=== PATIENT | female | born 1980 | race Caucasian/White ===

== ENCOUNTER 2022-05-12 08:11 | Emergency (ER) | payer OTHER, SELFPAY ==
[2022-05-12 08:23] VITALS: BP 151/94; PULSE 84; RESP 16; TEMP 36.1; O2SAT 96; BMI 43.3
--- NOTE | 2022-05-12 09:06 | CRLHL7_ITS ---
For Patients: As a result of the Century Cures Act, medical imaging exams and procedure reports are released immediately into your electronic medical record. You may view this report before your referring provider. If you have questions, please contact your health care provider. INDICATION: Fall. TECHNIQUE: CT Head without contrast. COMPARISON: None. FINDINGS: CSF spaces: Within normal limits for age. Brain parenchyma: The barber-white differentiation is normal. No sign of mass, hemorrhage, or midline shift. Skull base and calvarium: The visualized paranasal sinuses and mastoid air cells are clear. The visualized orbits are grossly unremarkable. No skull fractures. . IMPRESSION: Unremarkable noncontrast head CT. Please note that all CT scans at this facility use dose modulation, iterative reconstruction, and/or weight-based dosing when appropriate to reduce radiation dose to as low as reasonably achievable. Dictated by Konrad Dorman MD @ 05/12/2022 9:47:25 AM (Electronically Signed)
--- NOTE | 2022-05-12 09:23 | ED.GENADULT ---
HPI - General Adult General Date Seen: 05/12/22 Chief complaint: Shortness of Breath/Dyspnea Stated complaint: Short of breath, high bp Time Seen by Provider: 05/12/22 08:59 Source: patient History of Present Illness HPI narrative: Patient is a 42-year-old woman who tells me she has not felt well for the past week primarily with headache and dizziness. She is also worried because her blood pressure has been elevated, she says when she has checked it at her friend's house ?both numbers have been over 100?. She says that she is not aware of having high blood pressure in the past. She became concerned that high blood pressure might be causing problems for her. To me, she specifically denies any chest pain or shortness of breath although I note that she checked in with a complaint of shortness of breath. She has not had any sore throat, congestion or cough. She does say that she just feels achy all over. She says the headache is bitemporal, and associated with nausea. It gets better with ibuprofen. Otherwise, it is constant for the past week. She denies visual complaints or other neurologic changes. She says typically she does not get headaches. When specifically asked, she does say she has had some urinary frequency and possibly some urgency. No dysuria. She does smoke daily, denies any alcohol use and denies any current drug use. Chart lists a history of methamphetamine use in 2018. She says she was supposed to see her primary care doctor recently but missed that appointment, she does say she has an appointment rescheduled in the near future. 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 of methamphetamine use (05/2018) History of vitamin D deficiency Surgical History History of appendectomy (1992) History of section (08/2019) History of colposcopy with cervical biopsy (1993) History of elective History of excision of dermoid cyst (2004) History of third molar tooth extraction (2000) Family History Mother Colon cancer, Onset Age: 50 Father Substance abuse Brother Substance abuse Social History Narrative: Recovering alcoholic Tobacco use 1 pack/day 28 years Significant other lives with mom also, 1 son Does not have a exercise regimen Smoking Status: Never smoker Do you use any of these nicotine containing products: None Second hand tobacco smoke exposure: No How often do you have a drink containing alcohol: never How often do you have six or more drinks on one occasion: Never AUDIT-C Alcohol total score: 0 Non-prescribed substance use: denies use service: No Exam Narrative: Exam Narrative: Vital signs as noted above. In general, an alert, well-appearing patient. Looks comfortable. Head: Normocephalic, atraumatic. Eyes: Pupils are equal reactive. Extraocular movements are full. Conjunctivae are normal. ENT: Mucous membranes are moist. Throat is normal. Notes some bitemporal tenderness to palpation. Neck: Supple without lymphadenopathy. Heart: Regular rate and rhythm. No murmur or rub. Lungs: Clear bilaterally. No increased work of breathing, crackles or wheezes. Abdomen: Soft and nontender. No organomegaly. Extremities: Well perfused. No edema. No calf tenderness. Pulses intact. Neurologic: Patient is alert and oriented to person and place. Speech is fluent. Face is symmetric. Moves all extremities equally. Affect: Normal. Skin: Warm and dry. Well perfused. Const: Vital Signs, click to edit/add: Vital Signs - 24 hr 05/12/22 08:23 Temperature 96.9 F L Pulse Rate [Pulse Oximeter] 84 Respiratory Rate 16 Blood Pressure [Ri ght Upper Arm] 151/94 H Pulse Oximetry 96 Oxygen Delivery Me thod Room Air Documenting provider has reviewed patient's vital signs: yes Course Course Hospital Course: Plan at this point will be to place an IV, she requests treatment for her headache so will go ahead and give her Toradol, Benadryl and Zofran. CT scan of the head given elevated blood pressures which she says are, blood pressure here is not markedly elevated but I am not sure which she has been running at home. I am going to get a CRP and sed rate given that her headache is temporal. Will check a COVID, routine blood work. Given that she is currently not complaining of dyspnea, is not tachypneic or hypoxic, has normal lung sounds, I do not think further evaluation for shortness of breath is necessary at this time. CT scan of the head by my review was negative for any acute findings. Final radiology report was likewise negative. She feels much better after treatment for her headache. Labs are all normal, COVID is negative. CRP is 1.6, sed rate is normal. I do not think this represents temporal arteritis. We discussed that her blood pressure is mildly elevated, something certainly to keep an eye on and when she sees her primary doctor that can be discussed. I am not worried however that her blood pressure is causing these symptoms. Certainly possible that she has another viral process going on, and may feel improved over the next few days. In the meantime, ibuprofen or Tylenol is appropriate for treatment of her headache if needed. Return for new symptoms such as high fever, vomiting, severe pain. Vital Signs Vital signs: Initial Vital Signs Temperature 96.9 F L 05/12/22 08:23 Temperature Source Temporal Artery Scan 05/12/22 08:23 Pulse Rate 84 05/12/22 08:23 Pulse Rhythm 05/12/22 08:23 Respiratory Rate 16 05/12/22 08:23 Blood Pressure 151/94 H 05/12/22 08:23 Blood Pressure Mean 113 05/12/22 08:23 Blood Pressure Position Sitting 05/12/22 08:23 Pulse Oximetry 96 05/12/22 08:23 Oxygen Delivery Method 05/12/22 08:23 Vital Signs Temperature 96.9 F L 05/12/22 08:23 Pulse Rate 84 05/12/22 08:23 Respiratory Rate 16 05/12/22 08:23 Blood Pressure 151/94 H 05/12/22 08:23 Pulse Oximetry 96 05/12/22 08:23 Oxygen Delivery Method 05/12/22 08:23 Temperature 96.9 F L 05/12/22 08:23 Pulse Rate 84 05/12/22 08:23 Respiratory Rate 16 05/12/22 08:23 Blood Pressure 151/94 H 05/12/22 08:23 Pulse Oximetry 96 05/12/22 08:23 Oxygen Delivery Method 05/12/22 08:23 Medical Decision Making Lab Data Labs: Lab Results 05/12/22 05/12/22 05/12/22 Range/Units 09:44 09:44 09:44 WBC 10.05 (4.50-11.00) K/uL RBC 5.17 (4.00-5.20) m/uL Hgb 15.1 (12.0-16.0) gm/dL Hct 44.1 (33.0-51.0) % MCV 85 (80-100) fL MCH 29 (26-34) pg MCHC 34 (32-36) gm/dL RDW Coeff of Jillian 13.4 (11.5-15.5) % Plt Count 320 (140-440) K/uL Neut % (Auto) 70.6 (42.0-72.0) % Lymph % (Auto) 19.0 L (20-44) % Davison % (Auto) 5.3 (0.0-11.0) % Eos % (Auto) 3.9 (0.0-7.0) % Baso % (Auto) 0.6 (0.0-3.0) % Neut # (Auto) 7.10 H (1.7-7.0) K/uL Lymph # (Auto) 1.90 (0.90-2.90) K/uL Davison # (Auto) 0.50 (0.00-0.90) K/UL Eos # (Auto) 0.39 (0.00-0.50) K/uL Baso # (Auto) 0.06 (0.00-0.30) K/uL Abs Immat Gran (auto) 0.06 (0.00-0.30) K/uL ESR 16 (2-20) mm/hr Sodium 136 (135-149) mmol/L Potassium 4.2 (3.6-5.1) mmol/L Chloride 102 (96-114) mmol/L Carbon Dioxide 28 (20-32) mmol/L BUN 15 (5-24) mg/dL Creatinine 0.6 (0.5-1.5) mg/dL Estimated Creat Clear 107.67 Estimated GFR 113 ml/min Glucose 162 H (60-115) mg/dL Calcium 9.3 (8.4-10.6) mg/dL Total Bilirubin 0.5 (0.1-1.5) mg/dL Direct Bilirubin 0.2 (0.0-0.5) mg/dL AST 29 (12-35) U/L ALT 33 (4-35) U/L Alkaline Phosphatase 91 (40-150) U/L C-Reactive Protein 1.6 H (0.5-1.0) mg/dL Total Protein 7.2 (6.0-8.3) g/dL Albumin 4.0 (3.3-5.0) g/dL TSH (0.270-4.200) uIU/mL SARS-CoV-2 (PCR) (Negative) 05/12/22 05/12/22 Range/Units 09:44 10:05 WBC (4.50-11.00) K/uL RBC (4.00-5.20) m/uL Hgb (12.0-16.0) gm/dL Hct (33.0-51.0) % MCV (80-100) fL MCH (26-34) pg MCHC (32-36) gm/dL RDW Coeff of Jillian (11.5-15.5) % Plt Count (140-440) K/uL Neut % (Auto) (42.0-72.0) % Lymph % (Auto) (20-44) % Davison % (Auto) (0.0-11.0) % Eos % (Auto) (0.0-7.0) % Baso % (Auto) (0.0-3.0) % Neut # (Auto) (1.7-7.0) K/uL Lymph # (Auto) (0.90-2.90) K/uL Davison # (Auto) (0.00-0.90) K/UL Eos # (Auto) (0.00-0.50) K/uL Baso # (Auto) (0.00-0.30) K/uL Abs Immat Gran (auto) (0.00-0.30) K/uL ESR (2-20) mm/hr Sodium (135-149) mmol/L Potassium (3.6-5.1) mmol/L Chloride (96-114) mmol/L Carbon Dioxide (20-32) mmol/L BUN (5-24) mg/dL Creatinine (0.5-1.5) mg/dL Estimated Creat Clear Estimated GFR ml/min Glucose (60-115) mg/dL Calcium (8.4-10.6) mg/dL Total Bilirubin (0.1-1.5) mg/dL Direct Bilirubin (0.0-0.5) mg/dL AST (12-35) U/L ALT (4-35) U/L Alkaline Phosphatase (40-150) U/L C-Reactive Protein (0.5-1.0) mg/dL Total Protein (6.0-8.3) g/dL Albumin (3.3-5.0) g/dL TSH 1.990 (0.270-4.200) uIU/mL SARS-CoV-2 (PCR) Negative SARS-CoV-2 (Negative) Discharge Plan Discharge Clinical Impression: Elevated blood pressure reading, Headache Patient Disposition: Home, Self-Care Condition: Improved Instructions: General Headache (ED) Additional Instructions: Ibuprofen or Tylenol as needed. Follow up with her primary doctor as planned. Return at any time for acute worsening. Prescriptions: No Action No Known Home Medications Follow Up/Referrals: Cecilia Escudero MD [Primary Care Provider] - Stand Alone Forms: [employer] Info Instructions
[2022-05-12] MEDS: diphenhydrAMINE 50 MG/ML inj 25 MG IVP (09:58)
[2022-05-12] MEDS: 0.9 % SODIUM CHLORIDE 1000 ml 1,000 ML IV (10:00)
[2022-05-12] MEDS: KETOROLAC 15 MG/ML inj IVP (10:00)
[2022-05-12] MEDS: ONDANSETRON 2 MG/ML inj 4 MG IVP (10:00)
[2022-05-12 10:04] LABS: Basophils Absolute Auto 0.06 K/uL (0.00-0.30); Basophils Percent Auto 0.6 % (0.0-3.0); Eosinophils Absolute Auto 0.39 K/uL (0.00-0.50); Eosinophils Percent Auto 3.9 % (0.0-7.0); Hematocrit 44.1 % (33.0-51.0); Hemoglobin* 15.1 gm/dL (12.0-16.0); Immature Granulocytes Abs Auto 0.06 K/uL (0.00-0.30); Mean Corpuscular HGB Conc 34 gm/dL (32-36); Mean Corpuscular Hemoglobin 29 pg (26-34); Mean Corpuscular Volume 85 fL (80-100); Monocytes Percent Auto 5.3 % (0.0-11.0); Neutrophils Percent Auto 70.6 % (42.0-72.0); Platelet Count* 320 K/uL (140-440); RDW Coefficient of Variation % 13.4 % (11.5-15.5); Red Blood Count 5.17 m/uL (4.00-5.20); White Blood Count* 10.05 K/uL (4.50-11.00)
[2022-05-12 10:07] LABS: Slide Review Reflex No
[2022-05-12 10:17] LABS: Chloride* 102 mmol/L (96-114); Sodium* 136 mmol/L (135-149)
[2022-05-12 10:19] LABS: Potassium* 4.2 mmol/L (3.6-5.1)
[2022-05-12 10:21] LABS: Alanine Aminotransferase* 33 U/L (4-35); Alkaline Phosphatase* 91 U/L (40-150); Aspartate Amino Transferase* 29 U/L (12-35); Bilirubin Direct* 0.2 mg/dL (0.0-0.5); Bilirubin Total* 0.5 mg/dL (0.1-1.5); Blood Urea Nitrogen* 15 mg/dL (5-24); Carbon Dioxide* 28 mmol/L (20-32); Creatinine* 0.6 mg/dL (0.5-1.5); Est. Creatinine Clearance* 107.67; Estimated Glomerular Filt Rate 113 ml/min; Glucose* 162 mg/dL (60-115); Total Protein* 7.2 g/dL (6.0-8.3)
[2022-05-12 10:22] LABS: Calcium* 9.3 mg/dL (8.4-10.6)
[2022-05-12 10:24] LABS: C Reactive Protein* 1.6 mg/dL (0.5-1.0)
[2022-05-12 10:54] LABS: SARS PCR* Negative SARS-CoV-2 (Negative)
[2022-05-12 10:57] LABS: Erythrocyte SedimentationRate* 16 mm/hr (2-20)
== END 2022-05-12 11:30 | disposition home or self-care (01) ==
PROVIDERS: Emergency Provider Emergency Medicine; PCP Family Medicine
DX: R51.9 Headache, unspecified (principal); R03.0 Elevated blood-pressure reading, without diagnosis of hypertension
CPT/HCPCS: 36415; 70450; 80048; 80076; 80306; 81001; 84443; 85025; 85651; 86140; 87635; 96361; 96374; 96375; 99284; J1200; J1885; J2405; J7030

== ENCOUNTER 2022-12-07 14:31 | Outpatient (CLI) | payer MEDICAID, SELFPAY | END 2022-12-07 14:32 | disposition home or self-care (01) | LOC: NFLDREF 12-10 15:44 | PROVIDERS: PCP Family Medicine; Visit Provider Family Medicine | DX: Z00.00 Encounter for general adult medical examination without abnormal findings (principal); E78.1 Pure hyperglyceridemia; E55.9 Vitamin D deficiency, unspecified; I10 Essential (primary) hypertension; E66.01 Morbid (severe) obesity due to excess calories; F41.9 Anxiety disorder, unspecified; F32.A Depression, unspecified | CPT/HCPCS: 80053; 80061; 82306 ==

== ENCOUNTER 2023-03-06 14:39 | Outpatient (CLI) | payer MEDICAID, SELFPAY | END 2023-03-06 14:40 | disposition home or self-care (01) | LOC: NFLDREF 03-07 07:21 | PROVIDERS: PCP Family Medicine; Referring Provider Family Medicine; Visit Provider Family Medicine | DX: I10 Essential (primary) hypertension (principal); E55.9 Vitamin D deficiency, unspecified | CPT/HCPCS: 80048; 82306 ==

== ENCOUNTER 2023-04-16 13:36 | Outpatient (CLI) | payer MEDICAID, SELFPAY ==
--- NOTE | 2023-04-16 14:00 | CRLHL7_ITS ---
For Patients: As a result of the Cures Act, medical imaging exams and procedure reports are released immediately into your electronic medical record. You may view this report before your referring provider. If you have questions, please contact your health care provider. BILATERAL DIGITAL SCREENING MAMMOGRAM WITH COMPUTER-AIDED DETECTION CLINICAL HISTORY: Routine screening exam. COMPARISON: None. TECHNIQUE: Digital mammogram in CC and MLO projections including computer-aided detection (CAD). BREAST COMPOSITION: The breasts are almost entirely fatty FINDINGS: RIGHT Breast: Focal asymmetric density upper outer quadrant 13 cm from the nipple. LEFT Breast: No suspicious findings. IMPRESSION: RIGHT breast asymmetry/mass. RECOMMENDATIONS: Additional mammographic views of the RIGHT breast including 3D spot-compression CC/MLO. RIGHT breast ultrasound may also be required. [facility] will contact the patient for follow-up. BI-RADS Category 0: Incomplete: Need Additional Imaging Evaluation and/or Prior Mammograms for Comparison A lay language report of this examination will be provided to the patient. Dictated by Garrett Evans MD @ 04/17/2023 1:19:56 PM/elan PRAVEEN/Dictated by: Garrett Evans MD @ 04/17/2023 1:19:00 PM (Electronically Signed)
== END 2023-04-16 13:37 | disposition home or self-care (01) ==
LOC: MAMMO 13:38
PROVIDERS: PCP Family Medicine; Visit Provider Family Medicine
DX: Z12.31 Encounter for screening mammogram for malignant neoplasm of breast (principal); N63.10 Unspecified lump in the right breast, unspecified quadrant
CPT/HCPCS: 77067

== ENCOUNTER 2023-04-22 10:36 | Outpatient (CLI) | payer MEDICAID, SELFPAY ==
--- NOTE | 2023-04-22 10:45 | CRLHL7_ITS ---
For Patients: As a result of the Cures Act, medical imaging exams and procedure reports are released immediately into your electronic medical record. You may view this report before your referring provider. If you have questions, please contact your health care provider. DIAGNOSTIC RIGHT BREAST MAMMOGRAM WITH COMPUTER-AIDED DETECTION AND TOMOSYNTHESIS RIGHT BREAST ULTRASOUND CLINICAL HISTORY: RIGHT breast mass/asymmetry. COMPARISON: 04/16/2023. TECHNIQUE: Digital RIGHT mammogram in 2 projections. Computer-aided detection and tomosynthesis were used. Real-time ultrasound imaging of RIGHT breast with imaging documentation. BREAST COMPOSITION: The breasts are almost entirely fatty FINDINGS: 3D spot compression CC/MLO RIGHT breast mammogram images submitted. Decreased conspicuity of previously noted asymmetric density. No architectural distortion or suspicious calcifications. Targeted RIGHT breast ultrasound performed in the lateral RIGHT breast at 9 o`clock 12 cm from the nipple. Normal breast tissue is present. No fibrocystic change or solid mass. IMPRESSION: No evidence of malignancy. RECOMMENDATIONS: Annual BILATERAL screening mammography. BI-RADS Category 2: Benign Results and recommendations discussed with the patient. A lay language report of this examination will be provided to the patient. Dictated by Garrett Evans MD @ 04/22/2023 12:00:47 PM/elan PRAVEEN/Dictated by: Garrett Evans MD @ 04/22/2023 12:00:00 PM (Electronically Signed)
--- NOTE | 2023-04-22 11:15 | CRLHL7_ITS ---
For Patients: As a result of the Century Cures Act, medical imaging exams and procedure reports are released immediately into your electronic medical record. You may view this report before your referring provider. If you have questions, please contact your health care provider. PLEASE SEE RIGHT DIAGNOSTIC MAMMOGRAM OF SAME DAY. CRL:elan PRAVEEN/Dictated by: Garrett Evans MD @ 04/22/2023 12:00:00 PM (Electronically Signed)
== END 2023-04-22 10:37 | disposition home or self-care (01) ==
LOC: MAMMO 10:36
PROVIDERS: PCP Family Medicine; Visit Provider Family Medicine
DX: N63.10 Unspecified lump in the right breast, unspecified quadrant (principal); R92.8 Other abnormal and inconclusive findings on diagnostic imaging of breast
CPT/HCPCS: 76642; 77065; G0279

== ENCOUNTER 2023-05-31 15:35 | Outpatient (CLI) | payer MEDICAID, SELFPAY | END 2023-05-31 15:36 | disposition home or self-care (01) | LOC: NFLDREF 06-03 13:33 | PROVIDERS: PCP Family Medicine; Referring Provider Family Medicine; Visit Provider Family Medicine | DX: E78.5 Hyperlipidemia, unspecified (principal); R73.01 Impaired fasting glucose; E55.9 Vitamin D deficiency, unspecified; I10 Essential (primary) hypertension | CPT/HCPCS: 80053; 80061; 82306 ==

== ENCOUNTER 2023-11-28 09:33 | Outpatient (CLI) | payer MEDICAID, SELFPAY ==
--- OUTSIDE RECORDS SUMMARY | 2023-12-02 08:34 | XMS_ITS | Clinical Summary ---
Author Name Unknown Organization [facility] Address [place], [place] [address] Care Team Providers Care [place] [employer] Member Name Role Phone Pcp, No Primary Care Provider Unavailabl e Allergies No known active allergies Medications Medication Sig Dispensed Refills Start Date End Date Status naltrexone (REVIA) 50 mg tablet Take 50 mg by mouth once daily. 07/23/2022 Active buPROPion (WELLBUTRIN XL) 150 mg Extended-Release tablet Take 150 mg by mouth once daily. 07/23/2022 Active Vit B Cplx #[id number]-Y-Biot-Zinc [id number] cw-oq-ams-mg tabletIndications:De pression with anxiety Take by mouth. 0 08/08/2022 Active naproxen (ALEVE) 220 mg tabletIndications:Wh ole body pain Take 1 Tablet (220 mg) by mouth every 12 hours. 0 08/08/2022 Active ibuprofen (ADVIL; MOTRIN) 200 mg tabletIndications:Wh ole body pain Take 1 Tablet (200 mg) by mouth every 6 hours. 0 08/08/2022 Active losartan-hydrochloro thiazide, 50-12.5 mg, (HYZAAR) 50-12.5 mg tabletIndications:HT N (hypertension) Take 1 Tablet by mouth once daily. 30 Tablet 08/08/2022 Active cholecalciferol (VITAMIN D3) 5,000 unit capsuleIndications:V itamin D deficiency Take 1 Capsule (5,000 units) by mouth once daily. 90 Capsule 10/31/2022 Active Active Problems Problem Noted Date Diagnosed Date Primary cervical cancer 08/09/2022 Overview: age 27 - no surgery, had a procedure once to cure/treat. Treated at [facility] No abnormal pap smears since then Last pap was in 2018, NIL and negative HPV Alcohol use disorder in remission 08/09/2022 Gastritis 08/09/2022 Overview: Symptoms of gastritis, NSAID induced Takes NSAIDs daily to manage various aches and pains: knees, feet, headache Encounter for monitoring chronic NSAID therapy 1 Overview: Ibuprofen/Naproxen for whole body pain, knees, feet, headache pain takes it almost every day helps her get up and do stuff HTN (hypertension) 08/09/2022 Overview: h/o preE during Vitamin D insufficiency 12/04/2012 Depression with anxiety 12/01/2012 Overview: history of depression, took Prozac, saw provider at [facility]. She felt blah on the prozac, didn't want to take prozac, so she stopped. Therapies tried - prozac - not helpful - Paxil - Lexapro - this was a long time ago - zoloft - felt strange on initial small dose, worked well for mom BMI 40.0-44.9, adult Resolved Problems Problem Noted Date Diagnosed Date Resolved Date 2019 08/09/2022 Overview: FOB involved, he has four other children OB Provider: Dr. Echevarria Blood Type: A Positive Rubella: Immune Hx of one induced at age of 11 Hx of Meth use, was in treatment, last admitted to using beginning of February UDS every visit Hx of bulimia, was in the [employer] program, finished in 08/2018 Smoker, 1 pack/day Advanced Maternal Age- NSTs at 36 week, delivery at 39 weeks Recommended ASA prophylaxis Growth sonos at 28&34 weeks Weekly NST/BPP at 32 weeks GBS Negative Morbid obesity 12/02/2012 08/09/2022 Ingrowing nail 05/16/2010 10/20/2013 Onychomycosis 05/16/2010 08/09/2022 Failed medical induction of labor 08/09/2022 Immunizations Name Administration Dates Next Due HepA-HepB (Twinrix) 12/06/2004 Influenza, IIV4 07/31/2019 Td (Age >=7 Years) 08/12/2004 Tdap 07/31/2019 Family History Medical History Relation Name Comments Cancer-colon Mother Cancer Other no breast, uter ine, ovarian cancer Relation Name Status Comments Brother Alive X1 Father Alive Mother Alive Other Sister Alive X2 Social History Tobacco Use Types Packs/Day Years Used Date Smoking Tobacco: Every Day Cigarettes 0.8 18 Smokeless Tobacco: Never Tobacco Cessation:Ready to Q uit: No; Counseling Given: Yes Comments:has not tried previouly Alcohol Use Standard Drinks/Week Comments Not Currently 0 (1 standard drink = 0.6 oz pur e alcohol) beer once a month PHQ-2 Answer Date Recorded PHQ-2 TOTAL SCORE 0 04/08/2020 Social Connections Answer Date Recorded Frequency of Communication with Friends and Fami ly Not on file 08/08/2022 Financial Resource Strain Answer Date R ecorded Difficulty of Paying Living Expenses Not on file 08/12/2021 Difficulty of Paying Living Expenses Not on file 08/12/2021 Sex and Gender Information Value Date Recorded Sex Assigned at Not on file Gender Identity Not on file Sexual Orientation Not on file Obstetrics History Para Term AB IAB SAB Ectopic Multiple Livin g Live Births 2 1 1 0 1 1 1 1 Date Outcome GA Total Labor Labor/2nd/3rd Weight Sex Delivery Anes PTL Reema A1 A5 Name Cl in 02/04 IAB ELECTIVE AB 09/08 Term 37w 1d 0h 09m 2.83 kg (6 lb 3.8 oz) M Epidu ral N Mariel ng [address] [facility] [address] Yao Cooper for CRK Complications:Failure to Pro juanita in First Stage,Gestational hypertension [facility] Location:[facility]) Last Filed Vital Signs Vital Sign Reading Time Taken Comments Blood Pressure 130/84 08/08/2022 1:16 PM COMMISSARY AGENT Pulse 78 08/08/2022 1:16 PM COMMISSARY AGENT Temperature 36.7 ??C (98 ??F) 10/21/2019 2:35 PM CDT Respiratory Rate 18 09/11/2019 9:30 AM COMMISSARY AGENT Oxygen Saturation 98% 08/08/2022 1:16 PM COMMISSARY AGENT Inhaled Oxygen Concentration - - Weight 122 kg (269 lb) 08/08/2022 1:16 PM COMMISSARY AGENT Height 162 cm (5' 3.78) 08/08/2022 1:16 PM COMMISSARY AGENT Body Mass Index 46.49 08/08/2022 1:16 PM COMMISSARY AGENT Plan of Treatment Health Maintenance Due Date Last Done Comments Pneumococcal series for age 6-64 (1 of 2 - PCV) 1984 Depression screening for age 12+ 04/08/2021 04/08/2020, 10/21/2019, 09/21/2019, Additional history exists Pap test for age 21-65 06/09/2021 8, 06/09/2018, 10/12/2010 Colonoscopy through age 75 2023 Mammogram for age 45-75 2023 COVID-19 vaccine series ( season) 2023 BMI (ht and wt on same day) for age 18+ 08/08/2023 08/08/2022, 04/08/2020, 10/21/2019, Additional history exists Influenza for age 9-49 04/12/2024 07/31/2019 Lipids for age 45-75 08/08/2027 08/08/2022, 12/02/19 13 Tetanus booster 07/31/2029 07/31/2019, 08/12/2004 Hepatitis C screening for ag e 18-79 Completed 03/10/2019 Tdap Completed 07/31/2019 HIV for age 15-65 Completed 08/08/2022, 03/10/2019 Procedures Procedure Name Priority Date/Time Associated Diagnosis Comments LC HIV-1/O/2, 4TH GENERATION Routine 08/08/2022 3:10 PM COMMISSARY AGENT Routine screening for STI (sexually transmitted infection) LC LIPID PANEL AND CHOL/HDL RATIO Routine 08/08/2022 3:10 PM COMMISSARY AGENT Annual physical exam ANTI HCV Today 03/10/2019 11:18 AM CDT Hx of drug abuse DEPUTY CHIEF SHERIFF THIN PREP PAP SCREEN IMAGED Routine 06/09/2018 5:35 PM CDT from Last 3 Months or Most Recently Relevant to Health Maintenance Results * (ABNORMAL) LC LIPID PANEL AND CHOL/HDL RATIO (08/08/2022 3:10 PM [facility]) [facility] Cholesterol, Total 265(H) 100 - 199 mg/dL 08/11/2022 8:08 AM [facility]) Triglycerides 412(H) 0 - 149 mg/dL 08/11/2022 8:08 AM [facility] ([facility]) HDL Cholesterol 45 >39 mg/dL 8:08 AM [facility] ([facility]) VLDL Cholesterol Mitch 76(H) 5 - 40 mg/dL 08/11/2022 8:08 AM [facility] ([facility]) LDL Chol Calc ([facility]) 144(H) 0 - 99 mg/dL 08/11/2022 8:08 AM [facility] ([facility]) T. Chol/HDL Ratio 5.9(H) 0.0 - 4.4 ratio 08/11/2022 8:08 AM [facility] ([facility]) Comment: ?T. Chol/HDL Ratio ?Men ??Women ?1/2 Avg.Risk ??3.4 ?3.3 ?Avg.Risk ??5.0 ?4.4 ? 2X Avg.Risk ??9.6 ?7.1 ? 3X Avg.Risk 23.4 ?? 11.0 Blood BLOOD SPECIMEN / Unknown Venipuncture / Unknown 08/08/2022 3:10 PM COMMISSARY AGENT 08/08/2022 3:14 PM COMMISSARY AGENT Narrative [facility] ([facility]) - 08/11/2022 8:08 AM COMMISSARY AGENT Performed at: ??01 - [address] ??[id number] Transition Rn: Zhen Beavers MD, Phone: ??[phone] Caro Motta MD SEND OU TS Performing Organization Address [facility]/State/[facility] Co de Phone Number [facility] ([facility]) [facility] [place] [address], * HIV-1/O/2, 4TH GENERATION (08/08/2022 3:10 PM COMMISSARY AGENT) HIV Scr 4th Gen Non Reactive Non Reactive 08/11/2022 12:[address] [facility] ([facility]) Comment: HIV Negative HIV-1/HIV-2 antibodies and HIV-1 p24 antigen were NOT detected. There is no laboratory evidence of HIV infection. Blood BLOOD SPECIMEN / Unknown Venipuncture / Unknown 08/08/2022 3:10 PM COMMISSARY AGENT 08/08/2022 3:14 PM COMMISSARY AGENT Narrative [facility] ([facility]) - 08/11/2022 12:07 PM COMMISSARY AGENT Performed at: ??01 [address] [place], [place] ??[id number] Transition Rn: Zhen Beavers MD, Phone: ??[phone] Caro Motta MD [facility] OR [facility] ([facility]) [address] [place] [address], * ANTI HCV (03/10/2019 11:18 AM CDT) HEPATITIS C ANTIBODY Non-React valorie Non-React valorie 03/11/2019 3:25 AM CDT [facility] Snapflow [facility] Comment:Antibodies to HCV no t detected; does not exclude the possibility of exposure to HCV. Blood BLOOD SPECIMEN / Unknown Venipuncture / Unknown 03/10/2019 11:18 AM CDT 03/10/2019 11:19 AM CDT Dara Delacruz APRN, PLANT PHYSIOLOGIST SEND OUTS [facility] [address] [place] [address], * DEPUTY CHIEF SHERIFF THIN PREP PAP SCREEN IMAGED (06/09/2018 5:35 PM CDT) Pathologist [facility] Case Report Gynecologic Cytology Report ? Case: [id number] ? Authorizing Provider: ??Paulina Chisholm NP ? Collected: ? 06/09/2018 1735 ? First Screen: ?Enid Reaves ? Received: ?06/11/2018 1839 ? Specimen: ?DEPUTY CHIEF SHERIFF ThinPrep Vial Screening, Cervical/Vaginal ? 06/19/2018 10:37 AM [facility] INTERPRETATION/ RESULT NEGATIVE FOR INTRAEPITHELIAL LESION OR MALIGNANCY (NIL) (none) 06/19/2018 10:37 AM [facility] IMEN ADEQUACY Satisfactory for evaluation No endocervical component seen 06/19/2018 10:37 AM [facility] HPV REQUEST HPV and PAP 06/19/2018 10:37 AM [facility] Date of LMP 05/27/2018 06/19/2018 10:37 AM [facility] Automated Review Successful 06/19/2018 10:37 AM [facility] Comment:Specimen processed s uccessfully by automated drapery maker device, NuConomyPrep Imaging System, [employer] ANCILLARY TESTING DEPUTY CHIEF SHERIFF HPV Ordered, Please see separate report 06/19/2018 10:37 AM [facility] Note The pap test is a screening technique, not a diagnostic procedure. ??It is used primarily to screen for squamous cancers and precursor lesions. ??Published studies have shown that it is subject to both false negative and false positive results. ??The pap test should not be used as the sole means to diagnose or exclude pre-malignant and malignant lesions. Cytology is screened and interpreted at [facility] - [address], [place] [address] and [facility] - [address]; [place] [address] and [facility] - [address]; [place] [address] and [facility] [address]; [place] [address] 06/19/2018 10:37 AM [facility] Other (Cervical/Vagina l) 06/09/2018 5:35 PM CDT 06/11/2018 6:39 PM CDT aPulina Chisholm NP PATHOLOGY/CYTOLOGY [facility] [address] [place] [address], [place] from Last 3 Months or Most Recently Relevant to Health Maintenance Advance Directives * Full Code (Latest Code Status on File) Date Activated Date Inactivated Comments 09/08/2019 8:08 PM 09/11/2019 4:10 PM * Full Code Date Activated Date Inactivated Comments 09/06/2019 5:45 PM 09/08/2019 8:08 PM * Full Code Date Activated Date Inactivated Comments 09/06/2019 5:24 PM 09/06/2019 5:45 PM * Full Code Date Activated Date Inactivated Comments 08/25/2019 5:15 PM 08/26/2019 11:12 PM Care Teams [place] Tribunal Member Relationship Specialty Start Date End Date Pcp, No . PCP - General 02/23/19
== END 2023-11-28 09:34 | disposition home or self-care (01) ==
LOC: NFLDREF 12-02 08:32
PROVIDERS: PCP Family Medicine; Referring Provider Family Medicine; Visit Provider Family Medicine
DX: E55.9 Vitamin D deficiency, unspecified (principal); E78.1 Pure hyperglyceridemia; I10 Essential (primary) hypertension; R73.03 Prediabetes
CPT/HCPCS: 80053; 80061; 82306

== ENCOUNTER 2024-03-16 09:55 | Outpatient (CLI) | payer MEDICAID, SELFPAY ==
--- OUTSIDE RECORDS SUMMARY | 2024-03-17 08:46 | XMS_ITS | Clinical Summary ---
Author Organization [facility] Address [place], [place] [address] Care Team Providers Care Director Of Catering Sales Name Role Phone Pcp, No Primary Care Provider Unavailabl e Allergies No known active allergies Medications Medication Sig Dispensed Refills Start Date End Date Status naltrexone (REVIA) 50 mg tablet Take 50 mg by mouth once daily. 07/23/2022 Active buPROPion (WELLBUTRIN XL) 150 mg Extended-Release tablet Take 150 mg by mouth once daily. 07/23/2022 Active Vit B Cplx #[id number]-H-Biot-Zinc [id number] ym-oe-zjm-mg tabletIndications:De pression with anxiety Take by mouth. [...] a procedure once to cure/treat. Treated at [facility] No abnormal pap smears since then Last [...] of depression, took Prozac, saw provider at [facility]. She felt blah on the prozac, [...] visit Hx of bulimia, was in the [employer] program, finished in 08/2018 Smoker, 1 pack/day Advanced Maternal Age- NSTs at 36 week, delivery at 39 weeks Recommended ASA prophylaxis Growth sonos at 28&34 weeks Weekly NST/BPP at 32 weeks GBS Negative Morbid obesity 12/02/2012 08/09/2022 Ingrowing nail 05/16/2010 10/20/2013 Onychomycosis 05/16/2010 08/09/2022 Failed medical induction of labor 08/09/2022 Encounters Date Type Department Care Team Description 12/16/2023 Travel from Last 3 Months Immunizations Name Administration Dates Next Due HepA-HepB [...] Outcome GA Total Labor Labor/2nd/3rd Weight Sex Type Anes PTL Reema A1 A5 Name Clin 1993 IAB ELECTI VE AB 2019 Term 37w 1d 0h 09m 2.83 kg (6 lb 3.8 oz) M C-Sect ion Epidur al N Livin g [address] [facility] [address] Yao Cooper for CRK Complications:Failure to Pro juanita in First Stage,Gestational hypertension Delivery Location:[facility] ([facility]) Last Filed Vital Signs Vital Sign Reading Time Taken Comments Blood Pressure 130/84 08/08/2022 1:16 PM SPECTROSCOPIST Pulse 78 08/08/2022 1:16 PM SPECTROSCOPIST Temperature 36.7 ??C (98 ??F) 10/21/2019 2:35 PM CDT Respiratory Rate 18 09/11/2019 9:30 AM SPECTROSCOPIST Oxygen Saturation 98% 08/08/2022 1:16 PM SPECTROSCOPIST Inhaled Oxygen Concentration - - Weight 122 kg (269 lb) 08/08/2022 1:16 PM SPECTROSCOPIST Height 162 cm (5' 3.78) 08/08/2022 1:16 PM SPECTROSCOPIST Body Mass Index 46.49 08/08/2022 1:16 PM SPECTROSCOPIST Plan of Treatment Health Maintenance Due Date Last Done Comments Pneumococcal series for age 6-64 (1 of 2 - PCV) 1984 Depression screening for age 12+ 04/08/2021 04/08/2020, 10/21/2019, 09/21/2019, Additional history exists Colonoscopy through age 75 2023 Mammogram for age 45-75 2023 COVID-19 vaccine series (2022- season) 2023 BMI (ht and wt on same day) for age 18+ 08/08/2023 08/08/2022, 04/08/2020, 10/21/2019, Additional history exists Influenza for age 9-49 04/12/2024 07/31/2019 Pap test for age 21-65 12/11/2025 3, 12/11/2022, 06/09/2018, Additional history exists Lipids for age 45-75 08/08/2027 08/08/2022, 12/02/19 13 Tetanus booster 07/31/2029 07/31/2019, 08/12/2004 Hepatitis C screening for ag e 18-79 Completed 03/10/2019 Tdap Completed 07/31/2019 HIV for age 15-65 Completed 08/08/2022, 03/10/2019 Procedures Procedure Name Priority Date/Time Associated Diagnosis Comments HPV THIN PREP Routine 12/11/2022 1:35 PM CDT LC HIV-1/O/2, 4TH GENERATION Routine 08/08/2022 3:10 PM SPECTROSCOPIST Routine screening for STI (sexually transmitted infection) LC LIPID PANEL AND CHOL/HDL RATIO Routine 08/08/2022 3:10 PM SPECTROSCOPIST Annual physical exam ANTI HCV Today 03/10/2019 11:18 AM CDT Hx of drug abuse from Last 3 Months or Most Recently Relevant to Health Maintenance Results * HPV HIGH RISK (12/11/2022 1:35 PM CDT) TYPE 16 Negative Negative 12/20/2022 2:57 PM CDT [facility] TYPE 18 Negative Negative 12/20/2022 2:57 PM CDT [facility] OTHER HIGH RISK TYPES Negative Negative 12/20/2022 2:57 PM CDT [facility] Other (Cervical/Vagina l) 12/11/2022 1:35 PM CDT 12/17/2022 6:36 PM CDT Narrative [facility] - 12/20/2022 2:57 PM CDT HPV types 16, 18, 31, 33, 35, 39, 45, 51, 52, 56, 58, 59, 66 and 68 DNA were undetectable or below the pre-set threshold. Methodology: Juno Gonzalo 4800 HPV Test Cecilia Escudero MD MICROBIOLOGY [facility] [address] [place] [address], * (ABNORMAL) LC LIPID PANEL AND CHOL/HDL RATIO (08/08/2022 3:10 PM SPECTROSCOPIST) Cholesterol, Total 265(H) 100 - 199 mg/dL 08/11/2022 8:08 AM [facility] Triglycerides 412(H) 0 - 149 mg/dL 08/11/2022 8:08 AM [facility] HDL Cholesterol 45 >39 mg/dL 8:[address] [facility] ([facility]) VLDL Cholesterol Mitch 76(H) 5 - 40 mg/dL 08/11/2022 8:08 AM [facility] LDL Chol Calc ([facility]) 144(H) 0 - 99 mg/dL 08/11/2022 8:08 AM SPECTROSCOPIST [facility] T. Chol/HDL Ratio 5.9(H) 0.0 - 4.4 ratio 08/11/2022 8:08 AM [facility] Comment: ?T. Chol/HDL Ratio ?Men ??Women ?1/2 Avg.Risk ??3.4 ?3.3 ?Avg.Risk ??5.0 ?4.4 ? 2X Avg.Risk ??9.6 ?7.1 ? 3X Avg.Risk 23.4 ?? 11.0 Blood BLOOD SPECIMEN / Unknown Venipuncture / Unknown 08/08/2022 3:10 PM SPECTROSCOPIST 08/08/2022 3:14 PM SPECTROSCOPIST Narrative [facility] - 08/11/2022 8:08 AM SPECTROSCOPIST Performed at: ??01 - [facility] [address] [facility] [address] [place], [place], [place] ??[id number] Vice President Of Manufacturing: Zhen Beavers MD, Phone: ??[phone] Caro Motta MD SEND OU TS Performing Organization Address [facility] Co de Phone Number [facility] ([facility]) [address] [place] [address], * LC HIV-1/O/2, 4TH GENERATION (08/08/2022 3:10 PM SPECTROSCOPIST) HIV Scr 4th Gen Non Reactive Non Reactive 08/11/2022 12:07 PM SPECTROSCOPIST [facility] ([facility]) Comment: HIV Negative HIV-1/HIV-2 antibodies and HIV-1 p24 antigen were NOT detected. There is no laboratory evidence of HIV infection. Blood BLOOD SPECIMEN / Unknown Venipuncture / Unknown 08/08/2022 3:10 PM SPECTROSCOPIST 08/08/2022 3:14 PM SPECTROSCOPIST Narrative [facility] ([facility]) - 08/11/2022 12:07 PM SPECTROSCOPIST Performed at: ??01 - [address] ??[id number] Vice President Of Manufacturing: Zhen Beavers MD, Phone: ??[phone] Caro Motta MD [facility] Performing Organization Address [facility] Co de Phone Number [facility] ([facility]) [address] [place] [address] * ANTI HCV (03/10/2019 11:18 AM CDT) HEPATITIS C ANTIBODY Non-React valorie Non-React valorie 03/11/2019 3:25 AM CDT [facility] Comment:Antibodies to HCV no t detected; does not exclude the possibility of exposure to HCV. Blood BLOOD SPECIMEN / Unknown Venipuncture / Unknown 03/10/2019 11:18 AM CDT 03/10/2019 11:19 AM CDT Dara Delacruz EMPLOYEE BENEFITS SPECIALIST, AUTOMOTIVE [employer] EMISSIONS TECHNICIAN SEND OUTS Performing Organization Address City/[facility]/ZIP Co de Phone Number [facility] [address] [place] [address], [place] from Last 3 Months or Most [...] 5:15 PM 08/26/2019 11:12 PM Care Teams Director Of Catering Sales Relationship Specialty Start Date End Date Pcp, No . PCP - General 02/23/19
== END 2024-03-16 09:56 | disposition home or self-care (01) ==
LOC: NFLDREF 03-17 08:44
PROVIDERS: PCP Family Medicine; Referring Provider Family Medicine; Visit Provider Family Medicine
DX: R73.03 Prediabetes (principal); E55.9 Vitamin D deficiency, unspecified; I10 Essential (primary) hypertension; E78.1 Pure hyperglyceridemia; R53.83 Other fatigue; E78.5 Hyperlipidemia, unspecified
CPT/HCPCS: 80053; 80061; 82607; 82728; 84443

== ENCOUNTER 2024-09-10 09:41 | Emergency (ER) | payer MEDICAID, SELFPAY ==
--- OUTSIDE RECORDS SUMMARY | 2024-09-10 09:43 | XMS_ITS | Clinical Summary ---
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 0 2 Active ibuprofen (ADVIL; MOTRIN) 200 mg tabletIndications :Whole body pain Take 1 Tablet (200 mg) by mouth every 6 hours. 0 2 Active amLODIPine (NORVASC) 2.5 mg tabletIndications :HTN (hypertension) Take 1 Tablet (2.5 mg) by mouth once daily. 90 Tablet 3 4 Active cholecalciferol, Vitamin D3, 2,000 unit tabletIndications :Morbid obesity with BMI of 45.0-49.9, adult (HC),Vitamin D insufficiency Take 1 Tablet (2,000 units) by mouth once daily. Active topiramate (TOPAMAX) 25 mg tabletIndications :Morbid obesity with BMI of 45.0-49.9, adult (HC),Prediabetes, Insulin resistance Take two tablets at bedtime 180 Tablet 5 Active metFORMIN (GLUCOPHAGE) 500 mg tabletIndications :Morbid obesity with BMI of 45.0-49.9, adult (HC),Prediabetes, Insulin resistance,Hypert ension, unspecified type Take one tablet twice daily with food 180 Tablet 5 Active topiramate (TOPAMAX) 25 mg tabletIndications :Morbid obesity with BMI of 45.0-49.9, adult (HC),Prediabetes, Insulin resistance Take 1 Tablet (25 mg) by mouth at bedtime. 90 Tablet 4 08/31/19 25 Discontinu ed(*Medica tion adjustment ) Hospital, Clinic, or Other Facility Administered Medication Ordered Dose Route Frequency Start Date End Date Status medroxyPROGESTERone acetate (contraceptive) (DEPO-PROVERA) injection 150 mgIndications:Encount er for contraceptive management, unspecified type 150 mg IM Q 3 MONTHS (12 WEEKS) 06/15/2024 05/17/2025 Active Active Problems Problem Noted Date Diagnosed Date Prediabetes 08/31/2024 Insulin resistance 08/31/2024 Hypertensive disease 08/31/2024 Morbid obesity with BMI of 45.0-49.9, adult 07/12 Weight gain 07/21/2024 Physical deconditioning 07/21/2024 Primary cervical cancer 08/09/2022 Overview (08/09/2022): age 27 - no surgery, had a procedure once to cure/treat. Treated at [facility] No abnormal pap smears since then Last pap was in 2018, NIL and negative HPV Alcohol use disorder in remission 08/09/2022 Gastritis 08/09/2022 Overview (08/09/2022): Symptoms of gastritis, NSAID induced Takes NSAIDs daily to manage various aches and pains: knees, feet, headache Encounter for monitoring chronic NSAID therapy 1 Overview (08/09/2022): Ibuprofen/Naproxen for whole body pain, knees, feet, headache pain takes it almost every day helps her get up and do stuff HTN (hypertension) 08/09/2022 Overview (08/09/2022): h/o preE during Vitamin D insufficiency 12/04/2012 Depression with anxiety 12/01/2012 Overview (08/09/2022): history of depression, took Prozac, saw provider at [facility]. She felt blah on the prozac, didn't want to take prozac, so she stopped. Therapies tried - prozac - not helpful - Paxil - Lexapro - this was a long time ago - zoloft - felt strange on initial small dose, worked well for mom BMI 40.0-44.9, adult Resolved Problems Problem Noted Date Diagnosed Date Resolved Date 2019 08/09/2022 Overview (08/27/2019): FOB involved, he has four other children OB Provider: Dr. Echevarria Blood Type: A Positive Rubella: Immune Hx of one induced at age of 11 Hx of Meth use, was in treatment, last admitted to using beginning of February UDS every visit Hx of bulimia, was in the [employer] program, finished in 08/2018 Smoker, 1 pack/day Advanced Maternal Age- NSTs at 36 week, delivery at 39 weeks Recommended ASA prophylaxis Growth sonos at 28&34 weeks Weekly NST/BPP at 32 weeks GBS Negative Morbid obesity 12/02/2012 08/09/2022 Ingrowing nail 05/16/2010 10/20/2013 Onychomycosis 05/16/2010 08/09/2022 Failed medical induction of labor 08/09/2022 Encounters Date Type Department Care Team Description 09/09/2024 Travel 09/02/2024 Travel 08/31/2024 10:00 AM PAGINATOR Telemedicine [facility] - [facility] [address] [place] [address] Pearl Santiago ewelina, THIRD GRADE TEACHER Telehealth (No vitals taken ); Weight (Med Check Topiramate) 08/27/2024 Telephone [facility] [address] [place] [address] Ronald Pastor, DO Form 08/26/2024 Travel 08/25/2024 9:30 AM PAGINATOR Telemedicine [facility] Weight Management - [facility] [address] Medical Nutrition Therapy (Follow up) 08/24/2024 Travel 08/01/2024 1:35 PM PAGINATOR Nurse/Clinic Staff Only [facility] [address] [place] [address] Testing (curbside testing based on orders placed) 08/01/2024 10:30 AM PAGINATOR Telemedicine [facility] [address] [place] [address] Sunday Navarro MD Telehealth (No vitals taken. CC: Sore throat) 08/01/2024 Travel 07/31/2024 Orders Only [facility] Weight Management - [facility] [address] [address] Pearl Santiago, THIRD GRADE TEACHER <No scans attached> 07/29/2024 2:15 PM PAGINATOR Orders Only [facility] [address] [place] [address] Lab, [facility] 07/29/2024 Travel 07/24/2024 Travel 07/23/2024 1:45 PM PAGINATOR - 07/23/2024 11:59 PM PAGINATOR Hospital Encounter [facility] [address] [place] [address] Pearl Santiago, THIRD GRADE TEACHER Melinda Sue, PT Morbid obesity with BMI of 45.0-49.9, adult (HC); Weight gain; Physical deconditioning 07/23/2024 Travel 07/22/2024 1:00 PM PAGINATOR Telemedicine [facility] Weight Management - [facility] [address] Medical Nutrition Therapy (Initial) 07/21/2024 9:30 AM PAGINATOR Telemedicine [facility] Weight Management - [facility] [address] [address] Pearl Santiago, THIRD GRADE TEACHER Telehealth (No vitals taken ); Consult (Initial Visit ) 07/17/2024 Travel 07/16/2024 Travel 06/25/2024 2:05 PM PAGINATOR Office Visit [facility] [address] [place] [address] Ronald Pastor DO Depression (Was seeing Dr. Dar Peck previously for medication - now seeing Farzana [facility] at [facility] in [facility] ); Form (Housing people to fax form stating she can move apartments ) 06/25/2024 Travel 06/15/2024 8:05 AM PAGINATOR Office Visit [facility] [address] [place] [address] Ronald Pastor DO Medication Management (Depo provera - thinks her last depo was 3 months (around February)- Dr. Margot Escudero ); Referral (Would like a referral to healthy weight management - gastric bypass ) 06/15/2024 Travel 06/11/2024 Travel from Last 3 Months Immunizations Name Administration Dates Next Due HepA-HepB (Twinrix) 12/06/2004 Influenza, IIV4 07/31/2019 Pneumococcal Poly,23-Valent (Pneumovax) 12/12/19 23 Td (Age >=7 Years) 08/12/2004 Tdap 07/31/2019 Family History Medical History Relation Name Comments Alcoholism Brother Other Brother Drug Abuse Alcoholism Father Other Father Drug Abduse Cancer-colon Mother Cancer Other no breast, uter ine, ovarian cancer Albinism Sister Anxiety disorder Sister Depression Sister Other Sister Drug Abuse Relation Name Status Comments Brother Alive X1 Father Alive Mother Alive Other Sister Alive X2 Social History Tobacco Use Types Packs/Day Years Used Date Smoking Tobacco: Every Day Cigarettes 0.5 18 Smokeless Tobacco: Never Tobacco Cessation:Ready to Q uit: No; Counseling Given: Yes Alcohol Use Standard Drinks/Week Comments Not Currently 0 (1 standard drink = 0.6 oz pur e alcohol) beer once a month PHQ-2 Answer Date Recorded PHQ-2 TOTAL SCORE 0 04/08/2020 Social Connections Answer Date Recorded Do you often feel lonely or isolated from those around you? 0 06/15/2024 Financial Resource Strain Answer Date R ecorded Difficulty of Paying Living Expenses 3 06/15/2024 Difficulty of Paying Living Expenses Not on file 06/15/2024 Food Insecurity Answer Date Recorded Do you worry your food will run out before you are able to buy more? 1 06/15/2024 Transportation Needs Answer Date Record ed Does lack of transportation keep you from medica l appointments? 1 06/15/2024 Does lack of transportation keep you from work, meetings or getting things that you need? 1 06/15/2024 Housing Stability Answer Date Recorded What is your housing situation today? 1 06/15/2024 Utilities Answer Date Recorded Do you have trouble paying f or utilities (for example, heat, electricity, water, phone)? 1 06/15/2024 Comments No Sex and Gender Information Value Date Recorded Sex Assigned at Not on file Legal Sex Female 7:59 AM PAGINATOR Gender Identity Not on file Sexual Orientation Not on file Occupation Industry Job Start Date Job End Date unemployed Not on file Not on file Not on file Obstetrics History Para Term [...] Epidur al N Livin g 7 9 [facility] er Dr. Yao Cooper for CRK Complications:Failure to Pro juanita in First Stage,Gestational hypertension Delivery Location:[facility]) Last Filed Vital Signs Vital Sign Reading Time Taken Comments Blood Pressure 145/89 06/25/2024 2:17 PM PAGINATOR rec heck Pulse 85 06/25/2024 2:15 PM PAGINATOR Temperature 36.7 C (98 F) 10/21/2019 2:35 PM CDT Respiratory Rate 18 09/11/2019 9:30 AM PAGINATOR Oxygen Saturation 99% 06/25/2024 2:15 PM PAGINATOR Inhaled Oxygen Concentration - - Weight 117.9 kg (260 lb) 08/31/2024 9:00 AM PAGINATOR Height 162 cm (5' 3.78) 08/31/2024 9:00 AM PAGINATOR Body Mass Index 44.94 08/31/2024 9:00 AM PAGINATOR Plan of Treatment Upcoming Encounters Date Type Department Care Team (Late st Contact Info) Description 09/10/2024 2:45 PM PAGINATOR Nurse/Clinic Staff Only [facility] [address] [place] [address] 09/22/2024 9:00 AM PAGINATOR Telemedicine [facility] Weight Management - [facility] [address] [place] [address] Arleen Perez, RD [address] [facility] [address] [place] [address] 10/27/2024 2:30 PM CDT Telemedicine [facility] - [facility] [address] [place] [address] Pearl Santiago [facility], THIRD GRADE TEACHER [address] [place] [address] Health Maintenance Due Date Last Done Comments Depression screening for age 12+ 04/08/2021 04/08/2020, 10/21/2019, 09/21/2019, Additional history exists Colonoscopy through age 75 2023 Mammogram for age 45-75 2023 Pneumococcal series for age 6-49 (2 of 2 - PCV) 12/12/2023 12/11/2022 COVID-19 vaccine series (1 - season) 2024 Influenza for age 9-49 04/12/2024 07/31/2019 BMI (ht and wt on same day) for age 18+ 08/31/2025 08/31/2024, 07/21/2024, 08/08/2022, Additional history exists Pap test for age 21-65 12/11/2025 , 12/11/2022, 06/09/2018, Additional history exists Lipids for age 45-75 07/29/2029 07/29/2024, 08/08/2022, 12/01/2012 Tetanus booster 07/31/2029 07/31/2019, 08/12/2004 Hepatitis C screening for ag e 18-79 Completed 03/10/2019 Tdap Completed 07/31/2019 HIV for age 15-65 Completed 08/08/2022, 03/10/2019 Procedures Procedure Name Priority Date/Time Associated Diagnosis Comments STREP A PCR STAT 08/01/2024 2:36 PM PAGINATOR Influenza-like illness THROAT RAPID STREP A WITH REFLEX Patient wait 08/01/2024 2:36 PM PAGINATOR Influenza-like illness COVID/FLU/RSV PANEL Routine 08/01/2024 1:50 PM PAGINATOR Influenza-like illness CBC W PLT NO DIFF Routine 08/01/2024 1:5 0 PM PAGINATOR Influenza-like illness URINE Routine 07/29/2024 2:02 PM PAGINATOR Morbid obesity with BMI of 45.0-49.9, adult (HC) COMP METABOLIC PANEL Routine 07/29/2024 2:02 PM PAGINATOR Morbid obesity with BMI of 45.0-49.9, adult (HC) Weight gain HEMOGLOBIN Routine 07/29/2024 2:02 PM PAGINATOR Morbid obesity with BMI of 45.0-49.9, adult (HC) TSH Routine 07/29/2024 2:02 PM PAGINATOR Morbid obesity with BMI of 45.0-49.9, adult (HC) Weight gain HEMOGLOBIN A1C Routine 07/29/2024 2:02 PM PAGINATOR Morbid obesity with BMI of 45.0-49.9, adult (HC) Weight gain INSULIN Routine 07/29/2024 2:02 PM PAGINATOR Morbid obesity with BMI of 45.0-49.9, adult (HC) Weight gain VITAMIN D 25 (DEFICIENCY) Routine 07/29/2024 2:02 PM PAGINATOR Morbid obesity with BMI of 45.0-49.9, adult (HC) VITAMIN B12 Routine 07/29/2024 2:02 PM PAGINATOR Morbid obesity with BMI of 45.0-49.9, adult (HC) Weight gain LIPID PANEL W REFLEX MEASURED LDL Routine 07/29/2024 2:02 PM PAGINATOR Morbid obesity with BMI of 45.0-49.9, adult (HC) URINE POCT Routine 06/15/2024 8:26 AM PAGINATOR Encounter for contraceptive management, unspecified type HPV HIGH RISK Routine 12/11/2022 1:35 PM CDT LC HIV-1/O/2, 4TH GENERATION Routine 08/08/2022 3:10 PM PAGINATOR Routine screening for STI (sexually transmitted infection) ANTI HCV Today 03/10/2019 11:18 AM CDT Hx of drug abuse from Last 3 Months or Most Recently Relevant to Health Maintenance Results * STREP A PCR (08/01/2024 2:36 PM PAGINATOR) GROUP A STREP Negative 08/02/2024 4:55 PM PAGINATOR [facility] Throat SPECIMEN FROM THROAT / Unknown Non-Blood / Unknown 08/01/2024 2:36 PM PAGINATOR 08/01/2024 2:51 PM PAGINATOR Sunday Navarro MD MICROBIOLOGY Final Resu lt Performing Organization Address City/[facility]/ZIP Co de Phone Number [facility] [address] [place] [address], * THROAT RAPID STREP A WITH REFLEX (08/01/2024 2:36 PM PAGINATOR) STREP A ANTIGEN Negative 08/01/2024 2:51 PM PAGINATOR [facility] Comment:PCR to follow. Throat SPECIMEN FROM THROAT / Unknown Non-Blood / Unknown 08/01/2024 2:36 PM PAGINATOR 08/01/2024 2:36 PM PAGINATOR Sunday Navarro MD MICROBIOLOGY Final Resu lt [facility] [address] [place] [address] * COVID/FLU/RSV PANEL (08/01/2024 1:50 PM PAGINATOR) [facility] COVID 19 DEJAFORT MYERS MOLECULAR Negative Negative 08/02/2024 12:37 AM PAGINATOR [facility] Comment:All PCR tests are griffith bject to false negative result due to variability in viral load and collection technique. A negative result does not rule out a SARS-CoV-2 infection. Clinical correlation required. INFLUENZA A PCR Negative 12:37 AM PAGINATOR [facility] INFLUENZA B PCR Negative 12:37 AM PAGINATOR [facility] Respiratory Syncytial Virus Negative 08/02/2024 12:37 AM PAGINATOR [facility] Swab NASOPHARYNGEAL SWAB / Unknown Non-Blood / Unknown 08/01/2024 1:50 PM PAGINATOR 08/01/2024 1:50 PM PAGINATOR us Sunday Navarro MD MICROBIOLOGY Final Resu lt [facility] [address] [place] [address], * CBC W/PLT NO DIFF [[id number]] (08/01/2024 1:50 PM PAGINATOR) [facility] WHITE BLOOD COUNT 10.1 4.5 - 11.0 thou/cu mm 08/01/2024 2:[address] [facility] RED BLOOD COUNT 4.63 4.00 - 5.20 mil/cu mm 08/01/2024 2:[address] [facility] HEMOGLOBIN 13.8 12.0 - 16.0 g/dL 08/01/2024 2:[address] [facility] HEMATOCRIT 40.5 33.0 - 51.0 % 08/01/2024 2:[address] [facility] MCV 88 80 - 100 fL 08/01/2024 2:[address] [facility] MCH 29.8 26.0 - 34.0 pg 08/01/2024 2:[address] [facility] MCHC 34.1 32.0 - 36.0 g/dL 08/01/2024 2:[address] [facility] RDW 13.8 11.5 - 15.5 % 08/01/2024 2:[address] [facility] PLATELET COUNT 289 140 - 440 thou/cu mm 08/01/2024 2:[address] [facility] MPV 9.1 6.5 - 11.0 fL 08/01/2024 2:[address] [facility] Blood BLOOD SPECIMEN / Unknown [facility] / Unknown 08/01/2024 1:50 PM PAGINATOR 08/01/2024 1:50 PM PAGINATOR Sunday Navarro MD HEMATOLOGY Final Resu lt [facility] [address] [place] [address] * (ABNORMAL) HEMOGLOBIN A1C (07/29/2024 2:02 PM PAGINATOR) Pathologist [facility] HEMOGLOBIN A1C 6.3(H) <5.7 % of total Hgb [facility] Comment: For someone without known diabetes, a hemoglobin A1c value between 5.7% and 6.4% is consistent with prediabetes and should be confirmed with a follow-up test. For someone with known diabetes, a value <7% indicates that their diabetes is well controlled. A1c targets should be individualized based on duration of diabetes, age, comorbid conditions, and other considerations. This assay result is consistent with an increased risk of diabetes. Currently, no consensus exists regarding use of hemoglobin A1c for diagnosis of diabetes for children. Blood BLOOD SPECIMEN / Unknown 07/29/2024 2:02 PM PAGINATOR 07/29/2024 2:03 PM PAGINATOR Pearl Fernandez Santiago THIRD GRADE TEACHER CHEMISTRY Fin al Result [facility] [address] [place] [address], [facility] [address] [facility] [place] [address] * (ABNORMAL) LIPID PANEL W REFLEX MEASURED LDL (07/29/2024 2:02 PM PAGINATOR) CHOLESTEROL, TOTAL 233(H) <200 mg/dL [facility] HDL CHOLESTEROL 53 > OR = 50 mg/dL [facility] TRIGLYCERIDES 285(H) <150 mg/dL [facility] Comment: If a non-fasting specimen was collected, consider repeat triglyceride testing on a fasting specimen if clinically indicated. Jo-Ann et al. J. of Clin. Lipidol. 2015;9:129-169. LDL-CHOLESTEROL 136(H) mg/dL (calc) [facility] Comment: Reference range: <100 Desirable range <100 mg/dL for primary prevention; <70 mg/dL for patients with CHD or diabetic patients with > or = 2 CHD risk factors. LDL-C is now calculated using the Manjeet-Tushar calculation, which is a validated novel method providing better accuracy than the Friedewald equation in the estimation of LDL-C. Manjeet SS et al. DRAKE. 2013;310(19): 0753-9849 (http://education.Tabacus Initative/faq/HGN866) CHOL/HDLC RATIO 4.4 <5.0 (calc) [facility] NON HDL CHOLESTEROL 180(H) <130 mg/dL (calc) [facility] Comment: For patients with diabetes plus 1 major ASCVD risk factor, treating to a non-HDL-C goal of <100 mg/dL (LDL-C of <70 mg/dL) is considered a therapeutic option. Blood BLOOD SPECIMEN / Unknown 07/29/2024 2:02 PM PAGINATOR 07/29/2024 2:03 PM PAGINATOR us Pearl Santiago THIRD GRADE TEACHER CHEMISTRY Fin al Result [facility] [address] [facility] [place] [address], [facility] [address] [place] [address] * (ABNORMAL) VITAMIN D 25 (DEFICIENCY) (07/29/2024 2:02 PM PAGINATOR) VITAMIN D,25-OH,TOTAL,IA 24(L) 30 - 100 ng/mL [facility] Comment: Vitamin D Status 25-OH Vitamin D: Deficiency: <20 ng/mL Insufficiency: 20 - 29 ng/mL Optimal: > or = 30 ng/mL For 25-OH Vitamin D testing on patients on D2-supplementation and patients for whom quantitation of D2 and D3 fractions is required, the Quest[facility]ure[facility](TM) 25-OH VIT D, (D2,D3), LC/MS/MS is recommended: order code 59523 (patients >2yrs). See Note 1 Note 1 For additional information, please refer to http://education.Tabacus Initative/faq/FTS778 (This link is being provided for informational/ educational purposes only.) Blood BLOOD SPECIMEN / Unknown 07/29/2024 2:02 PM PAGINATOR 07/29/2024 2:03 PM PAGINATOR Pearl Santiago THIRD GRADE TEACHER SEND OUTS Fin al Result [employer] [facility] [address] [place] [address], Clinical Data [facility] [address] [place] [address] * TSH (07/29/2024 2:02 PM PAGINATOR) Pathologist [facility] TSH 2.99 mIU/L [facility] Comment: Reference Range > or = 20 Years 0.40-4.50 Ranges First trimester 0.26-2.66 Second trimester 0.55-2.73 Third trimester 0.43-2.91 Blood BLOOD SPECIMEN / Unknown 07/29/2024 2:02 PM PAGINATOR 07/29/2024 2:03 PM PAGINATOR Pearl Santiago THIRD GRADE TEACHER CHEMISTRY Fin al Result Performing Organization Address [facility]/ZIP Co de Phone Number [employer] [facility] [address] [facility] [place] [place] [address], [place] [phone] [facility] [address] [place] [address] * HEMOGLOBIN (07/29/2024 2:02 PM PAGINATOR) HEMOGLOBIN 14.4 11.7 - 15.5 g/dL [facility] Blood BLOOD SPECIMEN / Unknown 07/29/2024 2:02 PM PAGINATOR 07/29/2024 2:03 PM PAGINATOR Pearl Fernandez [facility] HEMATOLOGY Fin al Result Performing Organization Address [facility] de Phone Number [employer] [facility] [address] [facility] [place] [place] [address], [place] [phone] [facility] [address] [facility] [place] [address] * (ABNORMAL) INSULIN (07/29/2024 2:02 PM PAGINATOR) Pathologist [facility] INSULIN 103.1(H) uIU/mL [facility] Comment: Reference Range < or = 18.4 Risk: Optimal < or = 18.4 Moderate NA High >18.4 Adult cardiovascular event risk category cut points (optimal, moderate, high) are based on Insulin Reference Interval studies performed at [facility] in 2021. Blood BLOOD SPECIMEN / Unknown 07/29/2024 2:02 PM PAGINATOR 07/29/2024 2:03 PM PAGINATOR Pearl Sloan ewelina Santiago THIRD GRADE TEACHER SEND OUTS Fin al Result Performing Organization Address [facility] Co de Phone Number [employer] [facility] [address] [facility] [place] [address], [place] [phone] [facility] [address] [place] [address] * VITAMIN B12 (07/29/2024 2:02 PM PAGINATOR) Pathologist [facility] VITAMIN B12 497 200 - 1,100 pg/mL [facility] Blood BLOOD SPECIMEN / Unknown 07/29/2024 2:02 PM PAGINATOR 07/29/2024 2:03 PM PAGINATOR us Pearl Santiago THIRD GRADE TEACHER CHEMISTRY Fin al Result [facility] [address] [place] [address], [place] [phone] [facility] [address] [place] [address] * URINE (07/29/2024 2:02 PM PAGINATOR) Pathologist [facility] HCG, QL, URINE NEGATIVE NEGATIVE [facility] Urine URINE SPECIMEN / Unknown 07/29/2024 2:02 PM PAGINATOR 07/29/2024 2:03 PM PAGINATOR Pearl Santiago THIRD GRADE TEACHER URINE Fin al Result Performing Organization Address [facility]/ZIP Co de Phone Number [facility] [address] [place] [address], [place] [phone] [facility] [address] [place] [address] * (ABNORMAL) COMP METABOLIC PANEL (07/29/2024 2:02 PM PAGINATOR) Pathologist [facility] GLUCOSE 136(H) 65 - 99 mg/dL [facility] Comment: Fasting reference interval For someone without known diabetes, a glucose value >125 mg/dL indicates that they may have diabetes and this should be confirmed with a follow-up test. UREA NITROGEN (BUN) 16 7 - 25 mg/dL [facility] CREATININE 1.02(H) 0.50 - 0.99 mg/dL [facility] EGFR 69 > OR = 60 mL/min/1.7 3m2 [facility] BUN/CREATININE RATIO 16 6 - 22 (calc) [facility] SODIUM 139 135 - 146 mmol/L [facility] [facility] POTASSIUM 3.9 3.5 - 5.3 mmol/L [facility] CHLORIDE 100 98 - 110 mmol/L [facility] CARBON DIOXIDE 29 20 - 32 mmol/L [facility] CALCIUM 9.7 8.6 - 10.2 mg/dL [facility] PROTEIN, TOTAL 7.2 6.1 - 8.1 g/dL [facility] ALBUMIN 4.2 3.6 - 5.1 g/dL [facility] GLOBULIN 3.0 1.9 - 3.7 g/dL (calc) [facility] ALBUMIN/GLOBULIN RATIO 1.4 1.0 - 2.5 (calc) [facility] BILIRUBIN, TOTAL 0.4 0.2 - 1.2 mg/dL [facility] ALKALINE PHOSPHATASE 87 31 - 125 U/L [facility] AST 19 10 - 35 U/L [facility] ALT 23 6 - 29 U/L [facility] Blood BLOOD SPECIMEN / Unknown 07/29/2024 2:02 PM PAGINATOR 07/29/2024 2:03 PM PAGINATOR [facility] Sloan [facility] THIRD GRADE TEACHER CHEMISTRY Fin al Result [facility] [address] [place] [address], [facility] [address] [place] [address] * POCT Urine (06/15/2024 8:26 AM PAGINATOR) Pathologist [facility] POC HCG URINE NEGATIVE NEGATIVE [facility] Urine URINE SPECIMEN / Unknown 06/15/2024 8:26 AM PAGINATOR 06/15/2024 8:27 AM PAGINATOR us Ronald Avtaralma ANDERSON URINE Final Result [facility] [address] [place] [address], [place] [phone] [facility] [address] [place] [address] * HPV HIGH RISK (12/11/2022 1:35 PM CDT) TYPE 16 Negative Negative 12/20/2022 2:57 PM CDT [facility] LABORATORY TYPE 18 Negative Negative 12/20/2022 2:57 PM CDT [facility] LABOR[facility] OTHER HIGH RISK TYPES Negative Negative 12/20/2022 2:57 PM CDT [facility] Other (Cervical/Vagina l) 12/11/2022 1:35 PM CDT 12/17/2022 6:36 PM CDT Narrative [facility] - 12/20/2022 2:57 PM CDT HPV types 16, 18, 31, 33, 35, 39, 45, 51, 52, 56, 58, 59, 66 and 68 DNA were undetectable or below the pre-set threshold. Methodology: Juno Gonzalo 4800 HPV Test us Cecilia Escudero MD MICROBIOLOGY Final Re sult [facility] [address] [place] [address], [place] * LC HIV-1/O/2, 4TH GENERATION (08/08/2022 3:10 PM PAGINATOR) HIV Scr 4th Gen Non Reactive Non Reactive 08/11/2022 12:07 PM PAGINATOR [facility] ([facility]) Comment: HIV Negative HIV-1/HIV-2 antibodies and HIV-1 p24 antigen were NOT detected. There is no laboratory evidence of HIV infection. Blood BLOOD SPECIMEN / Unknown Venipuncture / Unknown 08/08/2022 3:10 PM PAGINATOR 08/08/2022 3:14 PM PAGINATOR Narrative [facility] ([facility]) - 08/11/2022 12:07 PM PAGINATOR Performed at: - [address] [id number] Living Coach: Zhen Beavers MD, Phone: [phone] us Caro Motta MD LABORATORY Final Result [facility] TEST[facility] (CET) [address] [place], [place] [address] * ANTI HCV (03/10/2019 11:18 AM CDT) Pathologist [facility] HEPATITIS C ANTIBODY Non-React valorie Non-React valorie 03/11/2019 3:25 AM CDT [facility] TRAL LABORATORY Comment:Antibodies to HCV no t detected; does not exclude the possibility of exposure to HCV. Blood BLOOD SPECIMEN / Unknown Venipuncture / Unknown 03/10/2019 11:18 AM CDT 03/10/2019 11:19 AM CDT us Dara Delacruz APRN, FRAME PULLEY MORTISING MACHINE OPERATOR SEND OUTS Final Result [facility] 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
[2024-09-10 10:02] VITALS: BP 162/94; PULSE 91; RESP 20; TEMP 36.8; O2SAT 98; BMI 46.9
--- NOTE | 2024-09-10 11:43 | ED.ABDPAIN ---
HPI - Abdominal Pain General Chief Complaint: Abdominal Pain Stated Complaint: Upper R Quadrant pain Time Seen by Provider: 09/10/24 10:51 History of Present Illness HPI narrative: This 44-year-old female comes in reporting abdominal pain in the right a upper quadrant. This is been present for about 5 days. She does not report any fevers, nausea, vomiting, or diarrhea. She states that she has been able to take food without worsening symptoms. Related Data Home Medications ?Medication ?Instructions ?Recorded ?Confirmed amlodipine 2.5 mg tablet 2.5 mg PO DAILY 09/10/24 09/10/24 metformin 500 mg tablet 500 mg PO BID 09/10/24 09/10/24 topiramate 25 mg tablet 25 mg DAILY 09/10/24 Previous Rx's ?Medication ?Instructions ?Recorded cholecalciferol (vitamin D3) 125 125 mcg PO QDAY #90 caps 12/04/23 mcg (5,000 unit) capsule peg 3350-electrolytes 236 240 ml PO Q10M #4,000 mL 12/06/23 gram-22.74 gram-6.74 gram-5.86 gram solution (Golytely) hydrocodone 5 mg-acetaminophen 325 1 tab PO Q4-6H PRN pain #15 tabs 09/10/24 mg tablet ketorolac 10 mg tablet 10 mg PO Q8H 5 days #15 tabs 09/10/24 Allergies Allergy/AdvReac Type Severity Reaction Status Date / Time No Known Drug Allergies Allergy Verified 09/10/24 10:09 Review of Systems Status of ROS Reports: 10 or more systems reviewed and unremarkable except as noted in History and below Narrative Constitutional: No fevers, no weight gain or loss. Eyes: No discharge. No vision changes. HENT: No congestion, no sore throat, no ear pain. Cardiovascular: No chest pain, no palpitations. Respiratory: No shortness of breath, no wheezes, no cough. Gastrointestinal: No vomiting, no diarrhea. Right upper quadrant abdominal pain. Genitourinary: No dysuria, no hematuria. Musculoskeletal: Normal range of motion. Skin: No rashes, no pruritis. Neurological: No dizziness, weakness, sensory change, speech change. Endo/Heme/Allergies: No bruising or bleeding. No polydipsia. Pysch: no suicidality, no anxiety, no insomnia. All other systems reviewed and are negative. 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) ?Z86.19 - Personal history of other infectious and parasitic diseases (ICD-10) History of cervical dysplasia ?Z87.410 - Personal history of cervical dysplasia (ICD-10) Depression ?F32.A - Depression, unspecified (ICD-10) Bulimia nervosa (1989) ?F50.2 - Bulimia nervosa (ICD-10) Anxiety ?F41.9 - Anxiety disorder, unspecified (ICD-10) Surgical History History of third molar tooth extraction (2000) ?K08.409 - Partial loss of teeth, unspecified cause, unspecified class (ICD-10) History of excision of dermoid cyst (2004) ?Z98.890 - Other specified postprocedural states (ICD-10) ?Z86.018 - Personal history of other benign neoplasm (ICD-10) History of elective ?Z98.890 - Other specified postprocedural states (ICD-10) History of colposcopy with cervical biopsy (1993) ?Z98.890 - Other specified postprocedural states (ICD-10) History of section (08/2019) ?Z98.891 - History of uterine scar from previous surgery (ICD-10) History of appendectomy (1992) ?Z90.49 - Acquired absence of other specified parts of digestive tract (ICD-10) Family History Substance abuse Father Brother Colon cancer Mother, Onset Age: 50 Social History (Updated 12/04/23 @ 09:07 by Cecilia Escudero MD) Narrative: single, lives with son, half time at [employer] alcoholic Tobacco use 10/day , 28 pack years Does not have a exercise regimen Smoking Status: Current every day smoker Do you use any of these nicotine containing products: None Second hand tobacco smoke exposure: No How often do you have a drink containing alcohol: never How often do you have six or more drinks on one occasion: Never AUDIT-C Alcohol total score: 0 Non-prescribed substance use: denies use service: No Exam Narrative: Exam Narrative: Constitutional: Well-developed, well-nourished, no acute distress. HEENT: Normocephalic, atraumatic. Neck: Normal range of motion. Nontender. Supple. Heart: Regular. No murmurs. Normal rate. Intact distal pulses. Lungs: Clear to auscultation. No chest discomfort. No wheezes, rhonchi, or rales. Abdomen: Normal bowel sounds. Tenderness in the right upper quadrant. No rebound tenderness. Genitalia: Deferred. Back: No midline tenderness. Normal range of motion. Extremities: Normal range of motion. No injury. Skin: Intact. No rash. Warm. No erythema or pallor. Neurologic: No altered sensation. No weakness. Alert and oriented. Psychiatric: No suicidality. No anxiety or depression. No insomnia. Nursing notes and vitals signs are reviewed. Const: Vital Signs, click to edit/add: Vital Signs - 24 hr 09/10/24 10:02 Temperature 98.2 F Pulse Rate [Pulse Oximeter] 91 Respiratory Rate 20 Blood Pressure [Ri ght Upper Arm] 162/94 H Pulse Oximetry 98 Oxygen Delivery Me thod Room Air Course Vital Signs Vital signs: Initial Vital Signs Temperature 98.2 F 09/10/24 10:02 Temperature Source Temporal Artery Scan 09/10/24 10:02 Pulse Rate 91 09/10/24 10:02 Respiratory Rate 20 09/10/24 10:02 Blood Pressure 162/94 H 09/10/24 10:02 Blood Pressure Mean 116 H 09/10/24 10:02 Blood Pressure Position Sitting 09/10/24 10:02 Pulse Oximetry 98 09/10/24 10:02 Oxygen Delivery Method Room Air 09/10/24 10:02 Vital Signs Temperature 98.2 F 09/10/24 10:02 Pulse Rate 91 09/10/24 10:02 Respiratory Rate 20 09/10/24 10:02 Blood Pressure 162/94 H 09/10/24 10:02 Pulse Oximetry 98 09/10/24 10:02 Oxygen Delivery Method Room Air 09/10/24 10:02 Temperature 98.2 F 09/10/24 10:02 Pulse Rate 91 09/10/24 10:02 Respiratory Rate 20 09/10/24 10:02 Blood Pressure 162/94 H 09/10/24 10:02 Pulse Oximetry 98 09/10/24 10:02 Oxygen Delivery Method Room Air 09/10/24 10:02 MDM - Abdominal Pain MDM Narrative Medical decision making narrative: This patient comes in reporting right upper quadrant abdominal pain. An ultrasound of the right upper quadrant is obtained and does show evidence of cholelithiasis. There is no sonographic evidence of cholecystitis or obstruction. I did acquire labs and these also confirm no sign of such complications of infection or obstruction. The patient is okay to be discharged home and did receive prescriptions for Toradol and Oran. I advised her to follow-up with surgery clinic for plans for removal of her gallbladder. Lab Data Labs: Lab Results 09/10/24 09/10/24 Range/Units 11:20 12:28 WBC 9.53 (4.50-11.00) K/uL RBC 4.69 (4.00-5.20) m/uL Hgb 13.6 (12.0-16.0) gm/dL Hct 40.0 (33.0-51.0) % MCV 85 (80-100) fL MCH 29 (26-34) pg MCHC 34 (32-36) gm/dL RDW Coeff of Jillian 13.5 (11.5-15.5) % Plt Count 270 (140-440) K/uL Neut % (Auto) 65.7 (42.0-72.0) % Lymph % (Auto) 24.7 (20-44) % Luce % (Auto) 5.4 (0.0-11.0) % Eos % (Auto) 3.4 (0.0-7.0) % Baso % (Auto) 0.7 (0.0-3.0) % Neut # (Auto) 6.27 (1.7-7.0) K/uL Lymph # (Auto) 2.35 (0.90-2.90) K/uL Luce # (Auto) 0.50 (0.00-0.90) K/UL Eos # (Auto) 0.32 (0.00-0.50) K/uL Baso # (Auto) 0.07 (0.00-0.30) K/uL Abs Immat Gran (auto) 0.01 (0.00-0.30) K/uL Imm/Tot Granulo (auto) 0.1 % Sodium 138 (135-149) mmol/L Potassium 3.6 (3.6-5.1) mmol/L Chloride 106 (96-114) mmol/L Carbon Dioxide 25 (20-32) mmol/L Anion Gap 7 (7-15) mEq/L BUN 13 (5-24) mg/dL Creatinine 0.8 (0.5-1.5) mg/dL Estimated Creat Clear 72.69 Estimated GFR 92 ml/min Glucose 137 H (60-115) mg/dL Calcium 9.3 (8.4-10.6) mg/dL Total Bilirubin 0.5 (0.1-1.5) mg/dL Direct Bilirubin 0.4 (0.0-0.5) mg/dL AST 31 (12-35) U/L ALT 26 (4-35) U/L Alkaline Phosphatase 80 (40-150) U/L Total Protein 6.9 (6.0-8.3) g/dL Albumin 4.0 (3.3-5.0) g/dL Lipase 115 (23-300) U/L Urine Color Yellow (Yellow) Urine Appearance Cloudy A (Clear) Urine pH 7.0 (5.0-8.5) Ur Specific [place] 1.025 (1.000-1.030) Urine Protein 3+ A (Negative) Urine Glucose (UA) Negative (Negative) Urine Ketones Negative (Negative) Urine Blood Negative (Negative) Urine Nitrite Negative (Negative) Urine Bilirubin Negative (Negative) Urine Urobilinogen 0.2 (0.2-1.0) Ur Leukocyte Esterase Negative (Negative) Urine RBC 0-2 (0-2) Urine WBC 2-5 (0-5) Ur Squamous Epith Cells Many A (None-Few) Urine Bacteria Few A (None) Imaging Data US - abdomen: Radiologist's impression: Cholelithiasis without further evidence of cholecystitis. The remainder of the exam is unremarkable. Discharge Plan Discharge Clinical Impression: Cholelithiasis Patient Disposition: Home, Self-Care Condition: Stable Additional Instructions: Take medication as needed and indicated. Follow-up with surgery clinic for ongoing management. Return if worsening. Prescriptions: New hydrocodone-acetaminophen 5-325 mg tablet 1 tab PO Q4-6H PRN (Reason: pain) Qty: 15 0RF ketorolac 10 mg tablet 10 mg PO Q8H 5 Days Qty: 15 0RF No Action cholecalciferol (vitamin D3) 125 mcg (5,000 unit) capsule 125 mcg PO QDAY Qty: 90 3RF amlodipine 2.5 mg tablet 2.5 mg PO DAILY Patient Comments: suppose to take but not good at that metformin 500 mg tablet 500 mg PO BID topiramate 25 mg tablet 25 mg DAILY Patient Comments: takes at night peg 3350-electrolytes [Golytely] 236-22.74-6.74 -5.86 gram recon soln 240 ml PO Q10M Qty: 4000 0RF Rx Instructions: until fecal effluent is clear Follow Up/Referrals: Provider,Not a Local [Primary Care Provider] - Stand Alone Forms: MyHealth Info Instructions
[2024-09-10 11:48] LABS: Appearance Urine Cloudy (Clear); Bilirubin Urine Negative (Negative); Blood Urine Negative (Negative); Color Urine Yellow (Yellow); Glucose Urine Negative (Negative); Ketones Urine Negative (Negative); Leukocyte Esterase Urine Negative (Negative); Nitrite Urine Negative (Negative); Protein Urine 3+ (Negative); Specific Gravity Urine 1.025 (1.000-1.030); Urobilinogen Urine 0.2 (0.2-1.0)
--- OUTSIDE RECORDS SUMMARY | 2024-09-10 11:48 | XMS_ITS | Clinical Summary ---
Author Organization [employer] [facility] Address [place], [place] [address] Care Team Providers Care Weave Room Supervisor Name Role Phone Pearl Santiago Gmitro DUST BOX WORKER Unavailable [phone] Unavailable Ronald Pastor DO Primary Care Provider [phone] Allergies No known active allergies Medications naproxen [...] a procedure once to cure/treat. Treated at [place] No abnormal pap smears since then Last [...] of depression, took Prozac, saw provider at [facility]. She felt blah on the [...] visit Hx of bulimia, was in the [employer] program, finished in 08/2018 Smoker, 1 pack/day [...] 09/09/2024 Travel 09/02/2024 Travel 08/31/2024 10:00 AM SEQUINS SPOOLER Telemedicine [facility] - [facility] [address] [place] [address] Pearl Santiago ewelina, DUST BOX WORKER Telehealth (No vitals taken ); Weight (Med Check Topiramate) 08/27/2024 Telephone [facility] [address] [place] [address] Ronald Pastor, DO Form 08/26/2024 Travel 08/25/2024 9:30 AM SEQUINS SPOOLER Telemedicine [facility] [address] Medical Nutrition Therapy (Follow up) 08/24/2024 Travel 08/01/2024 1:35 PM SEQUINS SPOOLER Nurse/Clinic Staff Only [facility] [address] [place] [address] Testing (curbside testing based on orders placed) 08/01/2024 10:30 AM SEQUINS SPOOLER Telemedicine [facility] [address] [place] [address] Sunday Navarro MD Telehealth (No vitals taken. CC: Sore throat) 08/01/2024 Travel 07/31/2024 Orders Only [facility] - [facility] [address] [address] Pearl Santiago, DUST BOX WORKER <No scans attached> 07/29/2024 2:15 PM SEQUINS SPOOLER Orders Only [facility] [address] [place] [address] Lab, [facility] 07/29/2024 Travel 07/24/2024 Travel 07/23/2024 1:45 PM SEQUINS SPOOLER - 07/23/2024 11:59 PM SEQUINS SPOOLER Hospital Encounter [facility] [address] [place] [address] Pearl Santiago, DUST BOX WORKER Melinda Sue, PT Morbid obesity with BMI of 45.0-49.9, adult (HC); Weight gain; Physical deconditioning 07/23/2024 Travel 07/22/2024 1:00 PM SEQUINS SPOOLER Telemedicine [facility] - [facility] [address] Medical Nutrition Therapy (Initial) 07/21/2024 9:30 AM SEQUINS SPOOLER Telemedicine [facility] - [facility] [address] [address] Pearl Santiago, DUST BOX WORKER Telehealth (No vitals taken ); Consult (Initial Visit ) 07/17/2024 Travel 07/16/2024 Travel 06/25/2024 2:05 PM SEQUINS SPOOLER Office Visit [facility] [address] [place] [address] Ronald Pastor DO Depression (Was seeing Dr. Dar Peck previously for medication - now seeing Farzana Gillette at [facility] in [facility] ); Form (Housing people to fax form stating she can move apartments ) 06/25/2024 Travel 06/15/2024 8:05 AM SEQUINS SPOOLER Office Visit [facility] [address] [place] [address] Ronald Pastor DO Medication Management (Depo provera [...] on file Legal Sex Female 7:59 AM SEQUINS SPOOLER Gender Identity Not on file Sexual Orientation [...] al N Livin g 7 9 [facility] er Dr. Yao Cooper for CRK Complications:Failure to Pro juanita in First Stage,Gestational hypertension Delivery Location:[facility] ([facility]) Last Filed Vital Signs Vital Sign Reading Time Taken Comments Blood Pressure 145/89 06/25/2024 2:17 PM SEQUINS SPOOLER rec heck Pulse 85 06/25/2024 2:15 PM SEQUINS SPOOLER Temperature 36.7 C (98 F) 10/21/2019 2:35 PM CDT Respiratory Rate 18 09/11/2019 9:30 AM SEQUINS SPOOLER Oxygen Saturation 99% 06/25/2024 2:15 PM SEQUINS SPOOLER Inhaled Oxygen Concentration - - Weight 117.9 kg (260 lb) 08/31/2024 9:00 AM SEQUINS SPOOLER Height 162 cm (5' 3.78) 08/31/2024 9:00 AM SEQUINS SPOOLER Body Mass Index 44.94 08/31/2024 9:00 AM SEQUINS SPOOLER Plan of Treatment Upcoming Encounters Date Type Department Care Team (Late st Contact Info) Description 09/10/2024 2:45 PM SEQUINS SPOOLER Nurse/Clinic Staff Only [facility] [address] [place] [address] 09/22/2024 9:00 AM SEQUINS SPOOLER Telemedicine [facility] [address] [place] [address] Arleen Perez, RD [address] [facility] [address] [place] [address] 10/27/2024 2:30 PM CDT Telemedicine [facility] - [facility] [address] [place] [address] Pearl Santiago [facility], DUST BOX WORKER [address] [place] [place] [address] Health Maintenance Due Date Last Done Comments [...] STREP A PCR STAT 08/01/2024 2:36 PM SEQUINS SPOOLER Influenza-like illness THROAT RAPID STREP A WITH REFLEX Patient wait 08/01/2024 2:36 PM SEQUINS SPOOLER Influenza-like illness COVID/FLU/RSV PANEL Routine 08/01/2024 1:50 PM SEQUINS SPOOLER Influenza-like illness CBC W PLT NO DIFF Routine 08/01/2024 1:5 0 PM SEQUINS SPOOLER Influenza-like illness URINE Routine 07/29/2024 2:02 PM SEQUINS SPOOLER Morbid obesity with BMI of 45.0-49.9, adult (HC) COMP METABOLIC PANEL Routine 07/29/2024 2:02 PM SEQUINS SPOOLER Morbid obesity with BMI of 45.0-49.9, adult (HC) Weight gain HEMOGLOBIN Routine 07/29/2024 2:02 PM SEQUINS SPOOLER Morbid obesity with BMI of 45.0-49.9, adult (HC) TSH Routine 07/29/2024 2:02 PM SEQUINS SPOOLER Morbid obesity with BMI of 45.0-49.9, adult (HC) Weight gain HEMOGLOBIN A1C Routine 07/29/2024 2:02 PM SEQUINS SPOOLER Morbid obesity with BMI of 45.0-49.9, adult (HC) Weight gain INSULIN Routine 07/29/2024 2:02 PM SEQUINS SPOOLER Morbid obesity with BMI of 45.0-49.9, adult (HC) Weight gain VITAMIN D 25 (DEFICIENCY) Routine 07/29/2024 2:02 PM SEQUINS SPOOLER Morbid obesity with BMI of 45.0-49.9, adult (HC) VITAMIN B12 Routine 07/29/2024 2:02 PM SEQUINS SPOOLER Morbid obesity with BMI of 45.0-49.9, adult (HC) Weight gain LIPID PANEL W REFLEX MEASURED LDL Routine 07/29/2024 2:02 PM SEQUINS SPOOLER Morbid obesity with BMI of 45.0-49.9, adult (HC) URINE POCT Routine 06/15/2024 8:26 AM SEQUINS SPOOLER Encounter for contraceptive management, unspecified type HPV HIGH RISK Routine 12/11/2022 1:35 PM CDT LC HIV-1/O/2, 4TH GENERATION Routine 08/08/2022 3:10 PM SEQUINS SPOOLER Routine screening for STI (sexually transmitted infection) ANTI HCV Today 03/10/2019 11:18 AM CDT Hx of drug abuse from Last 3 Months or Most Recently Relevant to Health Maintenance Results * STREP A PCR (08/01/2024 2:36 PM SEQUINS SPOOLER) GROUP A STREP Negative 08/02/2024 4:55 PM SEQUINS SPOOLER [facility] Throat SPECIMEN FROM THROAT / Unknown Non-Blood / Unknown 08/01/2024 2:36 PM SEQUINS SPOOLER 08/01/2024 2:51 PM SEQUINS SPOOLER Sunday Navarro MD MICROBIOLOGY Final Resu lt Performing Organization Address City/[facility]/ZIP Co de Phone Number [facility] [address] [place] [address], * THROAT RAPID STREP A WITH REFLEX (08/01/2024 2:36 PM SEQUINS SPOOLER) STREP A ANTIGEN Negative 08/01/2024 2:51 PM SEQUINS SPOOLER [facility] Comment:PCR to follow. Throat SPECIMEN FROM THROAT / Unknown Non-Blood / Unknown 08/01/2024 2:36 PM SEQUINS SPOOLER 08/01/2024 2:36 PM SEQUINS SPOOLER Sunday Navarro MD MICROBIOLOGY Final Resu lt [facility] [address] [place] [address] * COVID/FLU/RSV PANEL (08/01/2024 1:50 PM SEQUINS SPOOLER) [facility] COVID 19 DEJANENANA MOLECULAR Negative Negative 08/02/2024 12:37 AM SEQUINS SPOOLER [facility] Comment:All PCR tests are griffith bject to false negative result due to variability in viral load and collection technique. A negative result does not rule out a SARS-CoV-2 infection. Clinical correlation required. INFLUENZA A PCR Negative 12:37 AM SEQUINS SPOOLER [facility] INFLUENZA B PCR Negative 12:37 AM SEQUINS SPOOLER [facility] Respiratory Syncytial Virus Negative 08/02/2024 12:37 AM SEQUINS SPOOLER [facility] Swab NASOPHARYNGEAL SWAB / Unknown Non-Blood / Unknown 08/01/2024 1:50 PM SEQUINS SPOOLER 08/01/2024 1:50 PM SEQUINS SPOOLER us Sunday Navarro MD MICROBIOLOGY Final Resu lt [facility] [address] [place] [address], * CBC W/PLT NO DIFF [[id number]] (08/01/2024 1:50 PM SEQUINS SPOOLER) [facility] WHITE BLOOD COUNT 10.1 4.5 - 11.0 thou/cu mm 08/01/2024 2:20 PM [facility] RED BLOOD COUNT 4.63 4.00 - 5.20 mil/cu mm 08/01/2024 2:20 PM [facility] HEMOGLOBIN 13.8 12.0 - 16.0 g/dL 08/01/2024 2:20 PM [facility] HEMATOCRIT 40.5 33.0 - 51.0 % 08/01/2024 2:20 PM [facility] MCV 88 80 - 100 fL 08/01/2024 2:20 PM [facility] MCH 29.8 26.0 - 34.0 pg 08/01/2024 2:20 PM [facility] MCHC 34.1 32.0 - 36.0 g/dL 08/01/2024 2:20 PM [facility] RDW 13.8 11.5 - 15.5 % 08/01/2024 2:20 PM [facility] PLATELET COUNT 289 140 - 440 thou/cu mm 08/01/2024 2:20 PM [facility] MPV 9.1 6.5 - 11.0 fL 08/01/2024 2:20 PM [facility] Blood BLOOD SPECIMEN / Unknown [facility] / Unknown 08/01/2024 1:50 PM SEQUINS SPOOLER 08/01/2024 1:50 PM SEQUINS SPOOLER Sunday Navarro MD HEMATOLOGY Final Resu lt [facility] [address] [place] [address] * (ABNORMAL) HEMOGLOBIN A1C (07/29/2024 2:02 PM SEQUINS SPOOLER) Pathologist [facility] HEMOGLOBIN A1C 6.3(H) <5.7 % of total Hgb [employer] Comment: For someone without known diabetes, [...] BLOOD SPECIMEN / Unknown 07/29/2024 2:02 PM SEQUINS SPOOLER 07/29/2024 2:03 PM SEQUINS SPOOLER Pearl Fernandez Santiago DUST BOX WORKER CHEMISTRY Fin al Result [facility] [address] [place] [address], [facility] [address] [place] [address] * (ABNORMAL) LIPID PANEL W REFLEX MEASURED LDL (07/29/2024 2:02 PM SEQUINS SPOOLER) CHOLESTEROL, TOTAL 233(H) <200 mg/dL [facility] HDL CHOLESTEROL 53 > OR = 50 mg/dL [facility] TRIGLYCERIDES 285(H) <150 mg/dL [facility] Comment: If a non-fasting specimen was collected, consider repeat triglyceride testing on a fasting specimen if clinically indicated. Jo-Ann et al. J. of Clin. Lipidol. 2015;9:129-169. LDL-CHOLESTEROL 136(H) mg/dL (calc) [employer] Bonner Comment: Reference range: <100 Desirable range <100 mg/dL for primary prevention; <70 mg/dL for patients with CHD or diabetic patients with > or = 2 CHD risk factors. LDL-C is now calculated using the Manjeet-Tushar calculation, which is a validated novel method providing better accuracy than the Friedewald equation in the estimation of LDL-C. Manjeet SS et al. DRAKE. 2013;310(19): 1125-2571 (http://education.[employer]/faq/XIU873) CHOL/HDLC RATIO 4.4 <5.0 (calc) [facility] NON HDL CHOLESTEROL 180(H) <130 mg/dL (calc) [employer] Comment: For patients with diabetes plus 1 major ASCVD risk factor, treating to a non-HDL-C goal of <100 mg/dL (LDL-C of <70 mg/dL) is considered a therapeutic option. Blood BLOOD SPECIMEN / Unknown 07/29/2024 2:02 PM SEQUINS SPOOLER 07/29/2024 2:03 PM SEQUINS SPOOLER us Pearl Santiago DUST BOX WORKER CHEMISTRY Fin al Result [facility] [address] [facility] [place] [address], [facility] [address] [place] [address] * (ABNORMAL) VITAMIN D 25 (DEFICIENCY) (07/29/2024 2:02 PM SEQUINS SPOOLER) VITAMIN D,25-OH,TOTAL,IA 24(L) 30 - 100 ng/mL [employer] Comment: Vitamin D Status 25-OH Vitamin D: Deficiency: <20 ng/mL Insufficiency: 20 - 29 ng/mL Optimal: > or = 30 ng/mL For 25-OH Vitamin D testing on patients on D2-supplementation and patients for whom quantitation of D2 and D3 fractions is required, the QuestAssureD(TM) 25-OH VIT D, (D2,D3), LC/MS/MS is recommended: order code 17572 (patients >2yrs). See Note 1 Note 1 For additional information, please refer to http://education.[employer]/faq/POG360 (This link is being provided for informational/ educational purposes only.) Blood BLOOD SPECIMEN / Unknown 07/29/2024 2:02 PM SEQUINS SPOOLER 07/29/2024 2:03 PM SEQUINS SPOOLER Pearl Santiago DUST BOX WORKER SEND OUTS Fin al Result [facility] [address] [place] [address], [facility] [address] [place] [address] * TSH (07/29/2024 2:02 PM SEQUINS SPOOLER) Pathologist [facility] TSH 2.99 mIU/L [facility] Comment: Reference Range > or = 20 Years 0.40-4.50 Ranges First trimester 0.26-2.66 Second trimester 0.55-2.73 Third trimester 0.43-2.91 Blood BLOOD SPECIMEN / Unknown 07/29/2024 2:02 PM SEQUINS SPOOLER 07/29/2024 2:03 PM SEQUINS SPOOLER Pearl Santiago DUST BOX WORKER CHEMISTRY Fin al Result Performing Organization Address [facility]/ZIP Co de Phone Number [facility] [address] [place] [address], [place] [phone] [facility] [address] [place] [address] * HEMOGLOBIN (07/29/2024 2:02 PM SEQUINS SPOOLER) HEMOGLOBIN 14.4 11.7 - 15.5 g/dL [facility] Blood BLOOD SPECIMEN / Unknown 07/29/2024 2:02 PM SEQUINS SPOOLER 07/29/2024 2:03 PM SEQUINS SPOOLER Pearl Fernandez [facility] HEMATOLOGY Fin al Result Performing Organization Address [facility] de Phone Number [facility] [address] [facility] [address], [place] [phone] [facility] [address] [facility] [place] [address] * (ABNORMAL) INSULIN (07/29/2024 2:02 PM SEQUINS SPOOLER) Pathologist [facility] INSULIN 103.1(H) uIU/mL [facility] Comment: Reference Range < or = 18.4 Risk: Optimal < or = 18.4 Moderate NA High >18.4 Adult cardiovascular event risk category cut points (optimal, moderate, high) are based on Insulin Reference Interval studies performed at [employer] in 2021. Blood BLOOD SPECIMEN / Unknown 07/29/2024 2:02 PM SEQUINS SPOOLER 07/29/2024 2:03 PM SEQUINS SPOOLER Pearl Sloan ewelina Santiago DUST BOX WORKER SEND OUTS Fin al Result Performing Organization Address [facility] Co de Phone Number [facility] [address] [facility] [place] [address], [place] [phone] [facility] [address] [facility] [place] [address] * VITAMIN B12 (07/29/2024 2:02 PM SEQUINS SPOOLER) Pathologist [facility] VITAMIN B12 497 200 - 1,100 pg/mL [facility] Blood BLOOD SPECIMEN / Unknown 07/29/2024 2:02 PM SEQUINS SPOOLER 07/29/2024 2:03 PM SEQUINS SPOOLER us Pearl Santiago DUST BOX WORKER CHEMISTRY Fin al Result [facility] [address] [place] [address], [place] [phone] [facility] [address] [place] [address] * URINE (07/29/2024 2:02 PM SEQUINS SPOOLER) Pathologist [facility] HCG, QL, URINE NEGATIVE NEGATIVE [facility] Urine URINE SPECIMEN / Unknown 07/29/2024 2:02 PM SEQUINS SPOOLER 07/29/2024 2:03 PM SEQUINS SPOOLER Pearl Santiago DUST BOX WORKER URINE Fin al Result Performing Organization Address [facility]/ZIP Co de Phone Number [facility] [address] [place] [address], [place] [phone] [facility] [address] [place] [address] * (ABNORMAL) COMP METABOLIC PANEL (07/29/2024 2:02 PM SEQUINS SPOOLER) Pathologist [facility] GLUCOSE 136(H) 65 - 99 mg/dL [facility] [...] 6.1 - 8.1 g/dL [facility] ALBUMIN 4.2 3.6 - 5.1 g/dL [facility] [...] BLOOD SPECIMEN / Unknown 07/29/2024 2:02 PM SEQUINS SPOOLER 07/29/2024 2:03 PM SEQUINS SPOOLER Pearl Sloan [facility] DUST BOX WORKER CHEMISTRY Fin al Result [email or web address] [address] [place] [address], [facility] [address] [place] [address] * POCT Urine (06/15/2024 8:26 AM SEQUINS SPOOLER) Pathologist [facility] POC HCG URINE NEGATIVE NEGATIVE [facility] Urine URINE SPECIMEN / Unknown 06/15/2024 8:26 AM SEQUINS SPOOLER 06/15/2024 8:27 AM SEQUINS SPOOLER us Ronald Avtaralma ANDERSON URINE Final Result [facility] [address] [place] [address], [place] [phone] [facility] [address] [place] [address] * HPV HIGH RISK (12/11/2022 1:35 PM CDT) TYPE 16 Negative Negative 12/20/2022 2:57 PM CDT [facility] TYPE 18 Negative Negative 12/20/2022 2:57 PM CDT [facility] OTHER HIGH RISK TYPES Negative Negative 12/20/2022 2:57 PM CDT [facility] Other (Cervical/Vagina l) 12/11/2022 1:35 PM CDT 12/17/2022 6:36 PM CDT Narrative [facility] - 12/20/2022 2:57 PM CDT HPV types 16, 18, 31, 33, 35, 39, 45, 51, 52, 56, 58, 59, 66 and 68 DNA were undetectable or below the pre-set threshold. Methodology: Juno Gonzalo 4800 HPV Test us Cecilia Escudero MD MICROBIOLOGY Final Re sult [facility] [address] [place] [address], [place] * LC HIV-1/O/2, 4TH GENERATION (08/08/2022 3:10 PM SEQUINS SPOOLER) HIV Scr 4th Gen Non Reactive Non Reactive 08/11/2022 12:07 PM SEQUINS SPOOLER [facility] Comment: HIV Negative HIV-1/HIV-2 antibodies and HIV-1 p24 antigen were NOT detected. There is no laboratory evidence of HIV infection. Blood BLOOD SPECIMEN / Unknown Venipuncture / Unknown 08/08/2022 3:10 PM SEQUINS SPOOLER 08/08/2022 3:14 PM SEQUINS SPOOLER Narrative [facility] - 08/11/2022 12:07 PM SEQUINS SPOOLER Performed at: - [address] [id number] Accounting Systems Manager: Zhen Beavers MD, Phone: [phone] us Caro Motta MD LABORATORY Final Result [facility] ([facility]ET) [address] [place], [place] [address] * ANTI HCV (03/10/2019 11:18 AM CDT) Pathologist [facility] HEPATITIS C ANTIBODY Non-React valorie Non-React valorie 03/11/2019 3:25 AM CDT [facility] Comment:Antibodies to HCV no t detected; does not exclude the possibility of exposure to HCV. Blood BLOOD SPECIMEN / Unknown Venipuncture / Unknown 03/10/2019 11:18 AM CDT 03/10/2019 11:19 AM CDT us Dara Delacruz APRN, MASH PROCESSING OPERATOR SEND OUTS Final Result [facility] [address] [place] [address], from Last 3 Months or Most Recently Relevant to Health Maintenance Insurance [facility] Advance Directives * Full Code (Latest Code [...] 5:15 PM 08/26/2019 11:12 PM Care Teams Weave Room Supervisor Relationship Specialty Start Date End Date Ronald Past[place] [address] PCP - General Family Practice 07/07/24 Pearl Santiago, DUST BOX WORKER [address] [phone] Clinical Nurse Specialist 07/21/[address] [address] [employer]ing Mill Operator 07/21/24
[2024-09-10 12:03] LABS: Bacteria Urine Few; RBC Urine 0-2 (0-2); Squamous Epithelial Cell Urine Many (None-Few)
[2024-09-10 12:42] LABS: Basophils Absolute Auto 0.07 K/uL (0.00-0.30); Basophils Percent Auto 0.7 % (0.0-3.0); Eosinophils Absolute Auto 0.32 K/uL (0.00-0.50); Eosinophils Percent Auto 3.4 % (0.0-7.0); Hemoglobin* 13.6 gm/dL (12.0-16.0); Immature Granulocytes Abs Auto 0.01 K/uL (0.00-0.30); Immature Granulocytes Pct Auto 0.1 %; Lymphocytes Absolute Auto 2.35 K/uL (0.90-2.90); Lymphocytes Percent Auto 24.7 % (20-44); Mean Corpuscular HGB Conc 34 gm/dL (32-36); Mean Corpuscular Hemoglobin 29 pg (26-34); Mean Corpuscular Volume 85 fL (80-100); Monocytes Percent Auto 5.4 % (0.0-11.0); Neutrophils Absolute Auto 6.27 K/uL (1.7-7.0); Neutrophils Percent Auto 65.7 % (42.0-72.0); Platelet Count* 270 K/uL (140-440); RDW Coefficient of Variation % 13.5 % (11.5-15.5); Red Blood Count 4.69 m/uL (4.00-5.20); White Blood Count* 9.53 K/uL (4.50-11.00)
[2024-09-10 12:43] LABS: Slide Review Reflex No
[2024-09-10 12:55] LABS: Chloride* 106 mmol/L (96-114); Potassium* 3.6 mmol/L (3.6-5.1); Sodium* 138 mmol/L (135-149)
[2024-09-10 12:57] LABS: Anion Gap 7 mEq/L (7-15); Blood Urea Nitrogen* 13 mg/dL (5-24); Carbon Dioxide* 25 mmol/L (20-32); Creatinine* 0.8 mg/dL (0.5-1.5); Est. Creatinine Clearance* 72.69; Estimated Glomerular Filt Rate 92 ml/min
[2024-09-10 12:58] LABS: Alanine Aminotransferase* 26 U/L (4-35); Alkaline Phosphatase* 80 U/L (40-150); Aspartate Amino Transferase* 31 U/L (12-35); Bilirubin Direct* 0.4 mg/dL (0.0-0.5); Bilirubin Total* 0.5 mg/dL (0.1-1.5); Calcium* 9.3 mg/dL (8.4-10.6); Glucose* 137 mg/dL (60-115); Total Protein* 6.9 g/dL (6.0-8.3)
[2024-09-10 13:09] LABS: Lipase* 115 U/L (23-300)
[2024-09-10 13:38] VITALS: BP 150/102; PULSE 80; RESP 16; O2SAT 97
== END 2024-09-10 13:47 | disposition home or self-care (01) ==
PROVIDERS: Emergency Provider Emergency Medicine Emergency Medical Services
DX: K80.20 Calculus of gallbladder without cholecystitis without obstruction (principal)
CPT/HCPCS: 36415; 76705; 80048; 80076; 81001; 81003; 83690; 85025; 87086; 99284